=== PATIENT | male | born 1960 | race Caucasian/White ===

== ENCOUNTER → 2021-03-20 08:42 | Outpatient (CLI) | payer OTHER, SELFPAY ==
--- NOTE | ~2021-03-20 | XR_ITS ---
EXAMINATION: XR ribs BI 3V w CXR 2V INDICATION: Chest pain, unspecified TECHNIQUE: PA and lateral views of the chest and 3 views of the bilateral ribs were obtained. COMPARISON: 04/12/2017 FINDINGS: There are minimal airspace opacities of the lung bases. No pleural effusion or pneumothorax is identified. The cardiomediastinal silhouette is normal. An old healed fracture of the right clavi hans is noted. There appear to be healed fractures of the anterior seventh and eighth ribs on the righ t. IMPRESSION: 1. Likely healed right-sided rib fractures. Reviewed, dictated and finalized at location A.
--- NOTE | ~2021-03-20 | XR_ITS ---
EXAMINATION: XR thoracic spine 3V DATE: 03/20/2021 10:52 INDICATION: Dorsalgia, unspecified TECHNIQUE: AP, lateral and lateral swimmer's views of the thoracic spine were obtained. COMPARISON: None. FINDINGS: There is no fracture. The vertebral body heights and alignment are normal. Mild loss of int ervertebral disc space height is seen in the mid thoracic spine. IMPRESSION: 1. Mild thoracic spondylosis without acute findings. Reviewed, dictated and finalized at location A.
--- NOTE | ~2021-03-20 | XR_ITS ---
XR_CERV2-3V_CR 03/20/2021 10:52 Indication: Neck pain Procedure: 4 views of cervical spine Comparison: 04/29/2012 Findings: No fracture, subluxation or dislocation. Vertebral body heights are maintained. No acute fr acture or traumatic malalignment. The cervicothoracic junction is visualized on the thoracic spine se amy. No prevertebral soft tissue abnormality. Lung apices are normal. No prevertebral soft tissue ab normality. Odontoid process within normal limits. Impression: 1: No significant abnormality of the cervical spine. Reviewed, dictated and finalized at location B. Impression: 1: No significant abnormality of the cervical spine.
--- NOTE | ~2021-03-20 | XR_ITS ---
EXAMINATION: XR lumbar spine 2-3V DATE: 03/20/2021 10:52 INDICATION: Low back pain TECHNIQUE: Anteroposterior and lateral views of the lumbar spine, and cone-down lateral view of the l umbosacral junction were obtained. COMPARISON: 04/12/2017 FINDINGS: There is mild anterior wedging of the lower thoracic spine and at L1 which appears chronic. The vertebral body alignment is normal. There is mild loss of intervertebral disc space height at L1 -2, L4-5, and L5-S1. Moderate facet osteoarthritis is noted. Small degenerative osteophytes project f rom the anterior endplates of multiple vertebral bodies. IMPRESSION: 1. Mild anterior wedging of the lower thoracic and upper lumbar spine which appears chronic and is li panchito physiologic. 2. Mild spondylosis. Reviewed, dictated and finalized at location A. IMPRESSION: 1. Mild anterior wedging of the lower thoracic and upper lumbar spine which linwood ears chronic and is likely physiologic. 2. Mild spondylosis.
== END ==
PROVIDERS: Visit Provider Nurse Practitioner Family
DX: M54.9 Dorsalgia, unspecified (principal); R07.9 Chest pain, unspecified; M47.894 Other spondylosis, thoracic region; M47.896 Other spondylosis, lumbar region
CPT/HCPCS: 71046; 71110; 72040; 72072; 72100

== ENCOUNTER 2024-11-06 00:36 | Day surgery (SDC) | payer MEDICARE, SELFPAY ==
[2024-11-01 14:48] VITALS: BMI 34.4
--- NOTE | 2024-11-01 15:03 | PC.NURSE ---
Addendum entered by Chloe Molina RN 11/03/24 10:43: 11/02/[address] Tinoco's office and they advise it is okay for pt to hold Plavix-just waiting on Dr. Tinoco to sign form. I spoke with Nemo pts and he will cont. to hold Plavix. 11/03/24 Received clearance letter from Dr. Tinoco's office that it is acceptable for pt to hold Plavix for colonoscopy and restart at after procedure. Spoke with Nemo confirming this. Original Note: Per pt's , Plavix is prescribed by software test technician Dr. Tinoco. Clearance form faxed on 11/01/[address] Tinoco with confirmation and call to office to voice urgency for form to be completed. Clearance form received from Dr. Ray. Dr. Ray requests clearance from Dr. Tinoco in regards to pt's Plavix. Per Dr. Tinoco's office, RN is out of the office and will be back tomorrow morning. It is requested we call first thing tomorrow morning to check status of clearance form. I spoke with pt and his and advised pt to take Plavix today, but hold taking tomorrow until we get clearance from Dr. Tinoco and update him. Pt and voiced understanding.
--- OUTSIDE RECORDS SUMMARY | 2024-11-06 00:41 | XMS_ITS | Patient Health Record ---
Author Organization [facility] Address [address] [place] [address] Reason For Referral No Information Plan Of Treatment No Information
--- OUTSIDE RECORDS SUMMARY | 2024-11-06 00:41 | XMS_ITS | Encounter Summary ---
Author Organization [facility] Address [address] [facility] [address] [place] [id number] Care Team Providers Care Artificial Intelligence Specialist Name Role Phone Marcos Pisano MD Primary Care Provider + [phone] Marcos Pisano MD Primary Care Provider + [phone] Encounter Details Date Type Department Care Team (Late st Contact Info) Description 11/17/2016 Orders Only [facility] ProviderMaximo MD [address] [place] [id number] Social History Tobacco Use Types Packs/Day Years Used Date Smoking Tobacco: Former Cigarettes Q uit: 09/27/2014 Comments:Smoking History Pac ks/day: 1 Packs Alcohol Use Standard Drinks/Week Comments Yes 0 (1 standard drink = 0.6 oz pur e alcohol) Sex and Gender Information Value Date Recorded Sex Assigned at Not on file Legal 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 Historical Provider [facility] Final Result documented in this encounter Visit Diagnoses Not on filedocumented in this encounter Care Teams Artificial Intelligence Specialist Relationship Specialty Start Date End Date Marcos Pisano MD PCP - General 12/25/16 Marcos Pisano MD PCP - General 01/18/15 12/24/16 documented as of this encounter
--- OUTSIDE RECORDS SUMMARY | 2024-11-06 00:42 | XMS_ITS | Data Portability ---
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 Plan of Treatment Reminders Order Date Submit Date Provider Last Modified By Organization Details Last Modified Time Details Appointments None recorded. Lab ETHEL (antinuclea r antibodies) titer + pattern, ifa, serum 2022 023 [facility] (Lab), [address] [place], [address], 3 09:05:31 ige, total, serum [address] (Lab), [address] [place], [address], 3 15:37:48 alpha-1-ant itrypsin (aat) phenotype, serum [address] (Lab), [address] [place], [address], 3 15:37:49 igg subclasses 1+2+3+4, serum [address] (Lab), [address] [place], [address], 3 15:37:49 eosinophil count, manual, blood (OBS) 2022 023 [facility] (Lab), [address] [place], [address], 3 17:54:16 tb (M tuberculosi s), ifn-gamma rogelio, blood [address] (Lab), [address] [place], [address], 3 15:37:49 alpha-1-ant itrypsin (aat), QN, serum [address] (Lab), [address] [place], [address], 3 15:37:49 rast class, qualitative , serum 2022 023 [facility] (Lab), [address] [place], [address], 3 14:36:53 Referral otolaryngol ogist referral - [facility] evaluation 2022 023 [email or web address] 25 Grant Liu MD Ent, [facility] [address], [address], 11:39:26 Procedures None recorded. Surgeries None recorded. Imaging CT, chest, w/o contrast - DUE around 08/04/23 no auth required 2022 023 [email or web address] 25 [facility] ([facility]), [address] [place], [address], 12:41:04 Medication Orders None recorded. Patient TargetsNo targets recorded. Patient Instructions Encounter Date Encounter Id Patient Instructions Last Modified By Organization Details Last Modified Time 04/06/2023 [id number] six minute walk test* Not available 09/01/2023 11:39:14 06/28/2023 [id number] six minute walk test* - Patient scheduled on 08/10/2023 arrive at 1230pm [email or web address] Not available 09/01/2023 11:39:15 Reason for Referral [employer] Referral fo r Obstructive sleep apnea syndrome [facility] evaluation Referring Physician: Radha Sal, Pulmonary Disease, Encounter Date: 06/28/2023 Results Created Date Observation Date Name Description Value Unit Range Abnormal Flag Note LastModifiedBy Organization Detail LastModifiedTime 03/16/2003/13/2023 polys omnog daren, titra tion study No observ ation record ed. [email or web address] Not Available 03/26 09:58:47 03/18/20 23 10/28/2022 home sleep study No observ ation record ed. BARCODE Not Available 2022 11:01:27 03/18/20 23 11/05/2022 imagi ng/di agnos tic resul t No observ ation record ed. BARCODE Not Available 2022 12:40:11 03/18/20 23 02/01/2023 LDCT, chest , for lung cance r scree tomer No observ ation record ed. BARCODE Not Available 2022 12:40:11 03/18/20 23 10/28/2022 home sleep study No observ ation record ed. BARCODE Not Available 2022 12:40:11 03/18/20 23 10/28/2022 compl ete PFT w/ post cox monett hodil ator adilene metry * No observ ation record ed. BARCODE Not Available 2022 12:40:11 03/22/20 23 01/25/2023 imagi ng/di agnos tic resul t No observ ation record ed. BARCODE Not Available 2022 19:06:12 Result Notes None recorded. Problems Name Problem SNOMED Code Status Onset Date Resolution Date Notes Provider Name and Address Organization Details Recorded Time Tobacco user 300991645 Active Not Available [facility] 3 17:42:28 Blood glucose outside reference range 529725480 Active Not Available [facility] 3 17:42:28 Shoulder joint pain 210227706 Active Not Available [facility] 3 17:42:28 Cyst of skin 408168167 Active Not Available [facility] 3 17:42:28 Hypertensive disorder 74341607 Active Not Available [facility] 3 17:42:28 Umbilical hernia 824082293 Active Not Available [facility] 3 17:42:28 Sebaceoma 482024663 Active Not Available [facility] 3 17:42:28 Cough 67472329 Active Not Available [facility] 3 17:42:28 Coronary arteriosclero sis 61042674 Active Not Available [facility] 3 17:42:28 Skin lesion 09944086 Active Not Available [facility] 3 17:42:28 Obstructive sleep apnea syndrome 10052793 Active 2022 DEVON Jimenez [address], [address], [place], [address] , [employer] [facility] [employer] [facility] 3 10:21:23 Dyspnea on exertion 24238738 Active 2022 DEVON Jimenez [address], [address], [place], [address] , [employer] [facility] [employer] [facility] 3 10:22:58 Mild chronic obstructive pulmonary disease 031582134 Active 2022 DEVON Jimenez [address], [address], [place], [address] , [employer] [facility] [employer] [facility] 3 10:24:47 Localized eruption of skin 279387491 Active 2022 DEVON Jimenez [address], [address], [place], [address] , [employer] [facility] [employer] [facility] 3 10:25:19 Chronic cough 82299713 Active 2022 DEVON Jimenez [address], [address], [place], [address] , [employer] S [employer] [facility] 3 13:15:07 Abnormal findings on diagnostic imaging of lung 535685111 Active 2022 DEVON Jimenez [address], [address], [place], [address] , [facility] [employer] 13:15:27 Acute exacerbation of chronic obstructive pulmonary disease 368812176 Active 2022 Radha Doron, [facility]- [address], [address], [place], [address] , [facility] [employer] 10:01:53 Notes:Trevor Gallagher MD; Moses Kellogg MD [facility] home sleep study 10/28/22 AHI = 27 [facility] titration sleep study 03/13/23 Medical History: Nicotine use Mild COPD 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 Procedures Surgical History Date Name Laterality Status Provider Name and Address Organization Details Recorded Time repair of diaphragmatic hernia by abdominal approach completed [facility] [facility] 04/06/2023 09:56:39 Cardiac Stent Placement completed [facility] 04/06/2023 09:57:17 Imaging Results Imaging Date Name Status LastModified by Organization Details LastModified Time 03/13/2023 polysomnogram, titration study completed [email or web address] Information not available 03/26/2023 09:58:47 10/28/2022 home sleep study completed [facility] Informat ion not available 03/18/2023 11:01:27 11/05/2022 imaging/diagnostic result completed [facility] Information not available 03/18/2023 12:40:11 02/01/2023 LDCT, chest, for lung cancer screening completed [facility] Information not available 03/18/2023 12:40:11 10/28/2022 home sleep study completed [facility] Informat ion not available 03/18/2023 12:40:11 10/28/2022 complete PFT w/ post bronchodilator spirometry* completed [facility] Information not available 03/18/2023 12:40:11 01/25/2023 imaging/diagnostic result completed [facility] Information not available 03/22/2023 19:06:12 Procedure Notes None recorded. Medical Equipment None Reported. Allergies No known drug allergies Medications Name Sig Start Date Stop Date Status Note LastModified by Organization Details LastModified Time amoxicill in 500 mg capsule TAKE TWO CAPSULES BY MOUTH TWICE DAILY FOR 10 DAYS 04/06 completed Not Available Not Available Not Available atorvasta tin 40 mg tablet TAKE ONE TABLET BY MOUTH EVERY MORNING TO LOWER CHOLESTE ROL active Not Available Not Available No t Available doxycycli ne hyclate 100 mg capsule TAKE ONE CAPSULE BY MOUTH TWICE DAILY FOR 7 DAYS active Not Available Not Available No t Available lisinopri l 20 mg-hydroc hlorothia zide 12.5 mg tablet Take 1 tablet every day by oral route. active Not Available Not Available No t Available azithromy mariela 250 mg tablet TAKE 2 TABLETS BY MOUTH ON DAY 1, THEN TAKE 1 TABLET DAILY ON DAYS 2-5 active Not Available Not Available No t Available ibuprofen 800 mg tablet 06/26 completed Not Available Not Available Not Available benzonata te 200 mg capsule TAKE ONE CAPSULE BY MOUTH THREE TIMES DAILY FOR 10 DAYS 04/06 completed Not Available Not Available Not Available hydrocodo ne 5 mg-acetam inophen 325 mg tablet 11/16 completed Not Available Not Available Not Available prednison e 20 mg tablet TAKE THREE TABLETS DAILY DIRECTED FOR 5 DAYS active Not Available Not Available No t Available cyanocoba jeremías (vit B-12) 1,000 mcg tablet Take 1 tablet every day by oral route as directed for 30 days. active Not Available Not Available No t Available amlodipin e 5 mg tablet TAKE ONE TABLET BY MOUTH EVERY MORNING FOR BLOOD PRESSURE active Not Available Not Available No t Available ciproflox acin 500 mg tablet TAKE ONE TABLET BY MOUTH EVERY TWELVE HOURS FOR 10 DAYS 04/06 completed Not Available Not Available Not Available tramadol 50 mg tablet active Not Available Not Available Not Available oxycodone -acetamin ophen 5 mg-325 mg tablet TK 1 T PO Q 4 H PRN P 08/02 completed Not Available Not Available Not Available isosorbid e mononitra te ER 60 mg tablet,ex tended release 24 hr TAKE ONE TABLET BY MOUTH EVERY MORNING FOR HEART active Not Available Not Available No t Available pantopraz ole 40 mg tablet,de layed release TAKE ONE TABLET BY MOUTH BEFORE A MEAL FOR STOMACH active Not Available Not Available No t Available metoprolo l tartrate 50 mg tablet 04/06 completed Not Available Not Available Not Available aspirin 81 mg chewable tablet CHEW TWO TABLETS BY MOUTH EVERY MORNING TO PREVENT BLOOD CLOTS active Not Available Not Available No t Available diclofena c sodium 75 mg tablet,de layed release 06/26 completed Not Available Not Available Not Available ergocalci ferol (vitamin D2) 1,250 mcg (50,000 unit) capsule TAKE 1 CAPSULE BY MOUTH 1 TIME A WEEK active Not Available Not Available No t Available albuterol sulfate HFA 90 mcg/actua tion aerosol inhaler Inhale 2 puffs by mouth every 4 hours as needed for shortnes s of breath or wheezing active Not Available Not Available No t Available fluticaso ne propionat e 50 mcg/actua tion nasal spray,phil pension SPRAY ONE PUFF IN EACH NOSTRIL TWICE DAILY FOR ALLERGIE S active Not Available Not Available No t Available doxycycli ne hyclate 100 mg tablet Take 1 tablet twice a day by oral route as directed for 7 days. 2022 active Not Available Not Available Not Avai lable loratadin e 10 mg tablet TAKE ONE TABLET BY MOUTH EVERY MORNING FOR ALLERGIE S active Not Available Not Available No t Available amoxicill in 875 mg-potass ium clavulana te 125 mg tablet TAKE ONE TABLET EVERY TWELVE HOURS FOR 7 DAYS active Not Available Not Available No t Available valsartan 160 mg tablet TAKE ONE TABLET BY MOUTH EVERY MORNING FOR BLOOD PRESSURE active Not Available Not Available No t Available valsartan 160 mg-hydroc hlorothia zide 25 mg tablet TK 1 T PO QD active Not Available Not Available No t Available metoprolo l tartrate 25 mg tablet TAKE 1/2 TABLET BY MOUTH EVERY MORNING FOR BLOOD PRESSURE active Not Available Not Available No t Available metoprolo l tartrate active one PO daily Not Available Not Available Not Available isosorbid e active Isosorbi de monoitra te ER 30mg one PO daily Not Available Not Available Not Available varenicli ne tartrate 0.5 mg tablet active Not Available Not Available Not Available FeroSul 325 mg (65 mg iron) tablet TAKE 1 TABLET BY MOUTH EVERY DAY active Not Available Not Available No t Available Brilinta 90 mg tablet TAKE 1 TABLET BY MOUTH TWICE DAILY active Not Available Not Available No t Available Jardiance 10 mg tablet TAKE 1 TABLET BY MOUTH EVERY DAY active Not Available Not Available No t Available Xarelto 2.5 mg tablet TAKE 1 TABLET BY MOUTH TWICE DAILY 07/01 completed Not Available Not Available Not Available BinaxNOW COVID-19 Ag Self Test kit TEST DIRECTED TODAY active Not Available Not Available No t Available Ozempic 0.25 mg or 0.5 mg (2 mg/3 mL) subcutane ous pen injector Inject 0.5 mg by subcutan eous route. active weekly Not Available Not Available No t Available Vitals Date Recorded Body height Body mass index (BMI) Body weight Heart rate Oxygen saturation Oxygen saturation in Arterial blood by Pulse oximetry Systolic blood pressure Diastolic blood pressure Provider Name and Address Organization Details Last Updated DateTime 3 182.88 cm 34.9 kg/m2 699901. 24 g 79 /min 95 % 95 % 120 mm[Hg] 58 mm[Hg] [employer] [facility] 3 09:42:26 Date Recorded Body height Body mass index (BMI) Body weight Heart rate Oxygen saturation Oxygen saturation in Arterial blood by Pulse oximetry Systolic blood pressure Diastolic blood pressure Provider Name and Address Organization Details Last Updated DateTime 3 182.88 cm 30.5 kg/m2 605018. 28 g 80 /min 96 % 96 % 92 mm[Hg] 52 mm[Hg] [employer] [facility] 3 14:34:58 Social History Question Answer Notes LastModified by Organizat ion Details LastModified Time Tobacco Smoking Status Current Every Day Smoker KAMLESH Barrera, [employer] [facility] 06/28/2023 14:20:35 What Is Your Level Of Alcohol Consumption? Moderate [email or web address] Information not available 04/06/2023 What Is Your Level Of Caffeine Consumption? 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 [email or web address] Information not available 06/28/2023 Do You Have Any Pets? No [email or web address] Information not available 06/28/2023 At What Age Did You Start Smoking Tobacco? 14 [email or web address] Information not available 06/28/2023 How Much Tobacco Do You Smoke? 0.5 PPD [email or web address] Information not available 04/06/2023 Do You Use Any Illicit Or Recreational Drugs? No [email or web address] Information not available 06/28/2023 How Many Years Have You Smoked Tobacco? 44 [email or web address] Information not available 06/28/2023 Do You Or Have You Ever Used Any Other Forms Of Tobacco Or Nicotine? No [email or web address] Information not available 06/28/2023 Sex: Unknown Functional Status None recorded. Mental Status None recorded. Family History Nothing Reported. Medical History No medical history recorded. 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 DUMP OPERATOR-BC [facility] [address] [place] [address] 04/06/2023 09:23:25 04/06/2023 10:40:57 Obstructive sleep apnea syndrome 49960618 G47.33 Home sleep study 10/2022 with AHI 27.3Titrat ion 02/2023 with best pressure 8cm H2OHe tells me that he did not tolerate this pressure wellDiscus sed study and titration in detailHe agrees to try PAP - ordered todayEncou raged 100% compliance with all sleepDiscu ssed the risks of uncorrecte d ROLY, including deathFollo w with PCM for labsAdvise d good sleep habits and patterns:- Set a goal for at least 7 to 8 hours of sleep time per day.-Use the bed mainly for sleep and to go to bed only when tired. If unable to fall asleep after 30 minutes, patient should get out of bed but should not engage in any activity that requires sustained mental alertness. -Maintain a regular bedtime and wake-up time even on weekends-A void excessive naps during the daytime. If a nap is necessary, limit it to no more than 30 minutes.-M inimize environmen leo noise, bright lights, and extremes in bedroom temperatur e.-Avoid alcohol, caffeinate d beverages, and nicotine products for at least 6 hours prior to bedtime.-A void strenuous exercise and large meals for at least 4 hours prior to bedtime.RT C for compliance visit Dyspnea on exertion 6084 5006 R06.09 Likely multifacto ralCheck labs Mild chron ic obstructive pulmonary disease 416975593 J44.9 PFT completed 10/2022 with ratio 87FEV1 73TLC 93DLCO 86Discusse d in detailStar t Stiolto.8 weeks of samples to patientIns tructed on techniqueC heck 6MWTDiscus sed reportable signs and symptomsRT C in about 8 weeks Nicotine dependence 5629 4008 Z87.891 Smoking cessation counseling and techniques reviewed at length. L iterature reviewed.A void triggers, support groups.Dis traction techniques Greater than 3 but less than 10 minutes spent discussing cessation. Declines NRT.Discus sed Rx options if needed in the future.LDC T 01/2023 - repeat due 01/2024 Localized eruption of skin 109041629 R21 Check ETHEL History of SARS-CoV-2 29 63395199 56224023 Z86.16 +August 2022 Chronic cough 47079251 R 05.3 Multifacto ralHe must quit smoking Abnormal f indings on diagnostic imaging of lung 912063338 R91.8 GGO to left - likely post COVID residual [id number] Radha Sal, ROTARY DUMP OPERATOR- [facility] [address] [place] [address] 06/28/2023 14:19:36 06/28/2023 17:22:21 Obstructive sleep apnea syndrome 01673718 G47.33 Home sleep study 10/2022 with AHI 27.3Titrat ion 02/2023 with best pressure 8cm H2ONot enough use to discern clinical benefitEnc ouraged 100% compliance with all sleepDiscu ssed the risks of uncorrecte d ROLY, including deathFollo w with PCM for labsAdvise d good sleep habits and patterns:- Set a goal for at least 7 to 8 hours of sleep time per day.-Use the bed mainly for sleep and to go to bed only when tired. If unable to fall asleep after 30 minutes, patient should get out of bed but should not engage in any activity that requires sustained mental alertness. -Maintain a regular bedtime and wake-up time even on weekends-A void excessive naps during the daytime. If a nap is necessary, limit it to no more than 30 minutes.-M inimize environmen leo noise, bright lights, and extremes in bedroom temperatur e.-Avoid alcohol, caffeinate d beverages, and nicotine products for at least 6 hours prior to bedtime.-A void strenuous exercise and large meals for at least 4 hours prior to bedtime.Di scussed oral appliance and Inspire.Re ferral for both today. Dyspnea on exertion 6084 5006 R06.09 Likely multifacto ralAll labs normalSMok ing cessation Mild chron ic obstructive pulmonary disease 326615680 J44.9 PFT completed 10/2022 with ratio 87FEV1 73TLC 93DLCO 86Discusse d in detailStar bridger Crews, I have asked him to try this compliantl y for at least a weekInstru cted on techniqueC heck 6MWT, reordered todayDiscu ssed reportable signs and symptoms Localized eruption of skin 456117207 R21 ETHEL negative Chronic cough 48193697 R 05.3 Multifacto ralHe must quit smoking Nicotine dependence 5629 4008 Z87.891 Smoking cessation counseling and techniques reviewed at length. L iterature reviewed.A void triggers, support groups.Dis traction techniques Greater than 3 but less than 10 minutes spent discussing cessation. Declines NRT.Discus sed Rx options if needed in the future. Abnormal f indings on diagnostic imaging of lung 594787394 R91.8 GGO to left - likely post COVID residualRe check CT to assess for resolution vs stability History of SARS-CoV-2 29 02772060 28447826 Z86.16 +August 2022 Health Concerns Section Related Observation LastModified by Organization Detai ls LastModified Time None Recorded Concern Status LastModified by Organization Details LastModified Time None Recorded Advance Directives Directive None Recorded Payers Encounter Date Sequence Insurance Name Policy Number Policy [place] Covered Member ID [place] Member ID Guarantor Name 04/06/2023 1 [facility] (MEDICAID HMO) [id number] Inderjit oNonan [id number] Inderjit Noonan 06/28/2023 3 [facility] (MEDICARE REPLACEMENT/A DVANTAGE - HMO) [employer] Inderjit Noonan [id number] Inderjit Noonan Notes Date Note Type Note Provider Name and Address Organization Details Recorded Time 04/06/2023 text/html Mr Noonan pre sents today to establish care for further evaluation of ROLY, dyspnea, cough, abnormal imaging, nicotine dependenceHe has had cardiology evaluation with extensive workupSleep study was positive, he has not gotten PAP machine yetHe admits to falling asleep unintentionally during the dayEnergy levels are fair.Endorses snoring and xerostomiaHas also had PFT and CT chestAdmits to altering routines to avoid shortness of breathCan dress and bathe without dyspneaDoes have difficulty with mowing the grass and steps.Cough is most days, mildly productiveDenies wheezingWakes infrequently due to respiratory symptomsNo respiratory infection this year, did have COVID orn and raised in [place]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Feels like the pressure is too high, although he reports it was better when the pressure was lowered.Tells me that he is having difficulty adjusting to the mask.Energy levels are fair.Endorses snoring and xerostomia, unchangedAdmits to altering routines to avoid shortness of breathCan dress and bathe without dyspneaCough remains most days, mildly productiveDenies wheezingHas not had six minute walk testing DEVON Jimenez [address], [address], [place], [address], [employer] 06/28/2023 22:27:17
--- OUTSIDE RECORDS SUMMARY | 2024-11-06 00:42 | XMS_ITS | CONTINUITY OF CARE DOCUMENT ---
Author Name mitch meyer Address Unknown Organization [facility] Address [address] [place] [address] Phone [phone] Care Team Providers Care Borough Coordinator Name Role Phone Earnest SAHNI, Junie Broderick Unavailable JUANITA BAZZI MD Unavailable JUANITA BAZZI MD Unavailable PROBLEMS Condition Status Date Provider Notes Hiatal hernia active Tam Kellogg MD Aortic root dilatation active Tam Kellogg MD Diastolic CHF AND LVH active Tam Kellogg MD PREDIABETES; active Tam Kellogg MD IRON DEFICIENCY active Tam Kellogg MD B12 deficiency active Tam Kellogg MD Vitamin D deficiency active Tam Kellogg M D Screening active Tam Kellogg MD Hypertension active Tam Kellogg MD Hyperlipidemia;highcrp and neg lpa active H chu Kellogg MD Coronary artery disease active Tam puentes MD Tobacco abuse active Tam Kellogg MD GERD active Tam Kellogg MD Exposure to COVID-19 coronav irus;had vaccine,NG ANTIBOIDY 23 active Tam Kellogg MD COPD active Tam Kellogg MD Sleep apnea active Tam Kellogg MD Obesity active Tam Kellogg MD FAMILY HISTORY OF HEART DISEASE active Irina Kellogg MD [facility] ENCOUNTERS Date Type Provider Location Encounter Diag nosis - In-person encounter Office Visit Junie Tinoco MD [facility] Office - In-person encounter Office Visit Junie Tinoco MD [facility] - In-person encounter Office Visit Junie Tinoco MD [facility] - In-person encounter Office Visit Junie Tinoco MD [facility] - In-person encounter Office Visit Junie Tinoco MD [facility] - In-person encounter Office Visit Tam Kellogg MD [facility] - In-person encounter Office Visit Tam Kellogg MD [facility] ObesityFAMILY HISTORY OF HEART DISEASE - In-person encounter Office Visit Tam Kellogg MD [facility] HypertensionHyperlipidem ia;highcrp and neg lpaCoronary artery diseaseTobacco abuseGERDExposure to COVID-19 coronavirus;had vaccine,NG ANTIBOIDY 23COPDSleep apnea VITAL SIGNS Date Observation Value Provider Body Mass Index (Ratio) 34.85 kg/m2 Halina Tinoco MD blood pressure, diastolic 86 mm[Hg] Li nkLogic blood pressure, systolic 124 mm[Hg] Etelvina kLogic blood pressure, diastolic 86 mm[Hg] Li nkLogic blood pressure, systolic 124 mm[Hg] Etelvina kLogic blood pressure, cuff size regular Ka yla Ruple blood pressure, diastolic 86 mm[Hg] Ka yla Ruple blood pressure, systolic 124 mm[Hg] Ilene la Rugamaliel pulse rate 76 /min Sophie Ruple oxygen saturation, oximetry 96 % [facility] [lb_av] [facility]&M 72 [in_i] Sophie [facility] blood pressure, diastolic 76 mm[Hg] Li nkLogic blood pressure, systolic 125 mm[Hg] [facility] Index (Ratio) 35.26 kg/m2 Halina Tinoco MD weight E&M 260 [lb_av] [facility] blood pressure, cuff size regular [facility] blood pressure, diastolic 76 mm[Hg] [facility] blood pressure, systolic 125 mm[Hg] [facility] oxygen saturation, oximetry 96 % [facility] pulse rate 90 /min [facility] respiratory rate E&M 14 /min [facility] height E&M 72 [in_i] [facility] Body Mass Index (Ratio) 35.12 kg/m2 Halina Tinoco MD blood pressure, diastolic 74 mm[Hg] nkLog blood pressure, systolic 125 mm[Hg] [facility] blood pressure, cuff [facility], [facility] 74 mm[Hg] Dorian rret blood pressure, systolic 125 mm[Hg] Jar ret pulse rate 70 /min Kalin respiratory rate E&M 12 /min Kalin oxygen saturation, oximetry 97 % Kalin weight E&M 259 [lb_av] Kalin er y height E&M 72 [in_i] Kalin er y Body Mass Index (Ratio) 34.99 kg/m2 Halina Tinoco MD blood pressure, diastolic 78 mm[Hg] Miladis nkLogic blood pressure, systolic 121 mm[Hg] Etelvina kLogic blood pressure, diastolic 78 mm[Hg] [facility] blood pressure, systolic 121 mm[Hg] [facility] oxygen saturation, oximetry 96 % Sarika Clarence pulse rate 58 /min Sarika Clarence respiratory rate E&M 18 /min Sarika D jhonathan weight E&M 258 [lb_av] Sarika Clarence height E&M 72 [in_i] Sarika Clarence Body Mass Index (Ratio) 35.39 kg/m2 Halina Tinoco MD blood pressure, diastolic 83 mm[Hg] [facility] blood pressure, systolic 133 mm[Hg] [facility] oxygen saturation, oximetry 96 % Sarika Clarence pulse rate 74 /min Sarika Clarence weight E&M 261 [lb_av] Sarika Clarence height E&M 72 [in_i] Sarika Clarence respiratory rate E&M 18 /min Sarika D jhonathan Body Mass Index (Ratio) 35.39 kg/m2 Irina Kellogg MD blood pressure, diastolic 73 mm[Hg] [facility] blood pressure, systolic 115 mm[Hg] [facility] oxygen saturation, oximetry 95 % Sarika Clarence pulse rate 87 /min Sarika Clarence respiratory rate E&M 18 /min Sarika D jhonathan weight E&M 261 [lb_av] Sarika Clarence height E&M 72 [in_i] Sarika Clarence Body Mass Index (Ratio) 35.53 kg/m2 Irina Kellogg MD weight E&M 262 [lb_av] Tam Cardona Body Mass Index (Ratio) 35.39 kg/m2 Irina Kellogg MD blood pressure, diastolic 78 mm[Hg] [facility] b[facility] blood pressure, systolic 119 mm[Hg] Liam L[facility] oxygen saturation, oximetry 95 % Sarika Lima respiratory rate E&M 16 /min Sarika Cardona jhonathan pulse rate 74 /min Sarika Lima height E&M 72 [in_i] Sarika Lima weight E&M 261 [lb_av] Sarika Lima ALLERGIES No Known Drug Allergies RESULTS Date Observation Value Provider Reference Range Interpretation Location 7 c-reactive protein, quantitative, serum 13.13 mg/L [facility] 0.00-3.00 High 7 microalbumin/creatin ine ratio, urine 3 MG/G CREAT [facility] 0-29 7 microalbumin, random, urine 0.4 mg/dL [facility] Units converted. See lab report for original value. 7 creatinine, random, urine 133.8 mg/dL [facility] Not Estab. 7 ferritin, serum 48 ng/mL [facility] 30-400 7 B-12, serum 357 pg/mL [facility] 232-1245 7 pro brain natriuretic peptide 264 pg/mL [facility] 0-210 High 7 iron saturation percent, serum 37 % [facility] 15-55 7 iron, serum 109 ug/dL [facility] 38-169 7 iron binding capacity, unsaturated 186 ug/dL [facility] 029-618 1243/01/1 7 iron binding capacity, total 295 ug/dL [facility] 996-106 2740/01/1 7 free thyroxine index 2.0 [facility] 1.2-4.9 7 triiodothyronine resin uptake 32 % [facility] 24-39 7 thyroxine, serum, total 6.4 ug/dL [facility] 4.5-12.0 7 thyroid stimulating hormone, serum 2.580 u[IU]/mL [facility] 0.450-4.500 7 hemoglobin A1C, blood, as % of total hemoglobin 6.1 % [facility] 4.8-5.6 High 7 lipoprotein, beta, serum, point, quantitative, calculated 65 mg/dL [facility] 0-99 7 HDL cholesterol, serum 52 mg/dL [facility] >39 7 triglyceride, serum, random 98 mg/dL [facility] 0-149 7 cholesterol, serum 135 mg/dL [facility] 550-951 7181/01/1 7 basophil count, absolute 0.0 x10E3/uL [facility] 0.0-0.2 7 Eosinophil Absolute Count 0.3 X10E3/UL [facility] 0.0-0.4 7 monocyte count, blood, automated 1.5 X10E3/UL [facility] 0.1-0.9 High 7 lymphocyte count, blood, automated 2.4 X10E3/UL [facility] 0.7-3.1 7 Absolute Neutrophils 7.9 X10E3/UL [facility] 1.4-7.0 High 7 basophils as percent of blood leukocytes 0 % [facility] Not Estab. 7 eosinophils as percent of blood leukocytes 2 % [facility] Not Estab. 7 monocytes as percent of blood leukocytes 12 % [facility] Not Estab. 7 lymphocytes as percent of blood leukocytes 20 % [facility] Not Estab. 7 neutrophils as percent of blood leukocytes 66 % [facility] Not Estab. 7 platelet count 263 X10E3/UL [facility] 850-211 2053/01/1 7 red blood cell distribution width 13.0 % [facility] 11.6-15.4 7 mean corpuscular hemoglobin concentration, RBC 32.6 G/DL [facility] 31.5-35.7 7 mean corpuscular hemoglobin, RBC 30.0 pg [facility] 26.6-33.0 7 mean corpuscular volume, RBC 92 fL [facility] 79-97 7 hematocrit, blood 43.5 % [facility] 37.5-51.0 7 hemoglobin, blood 14.2 g/dL [facility] 13.0-17.7 7 erythrocyte (RBC) count 4.74 X10E6/UL [facility] 4.14-5.80 7 leukocyte count, blood 12.1 X10E3/UL [facility] 3.4-10.8 High 7 alanine aminotransferase (SGPT), serum 15 1/L [facility] 0-44 7 aspartate aminotransferase (SGOT), serum 15 1/L [facility] 0-40 7 alkaline phosphatase, serum 123 1/L [facility] 44-121 High 7 bilirubin, serum, total 0.7 mg/dL [facility] 0.0-1.2 7 albumin/globulin ratio, serum 1.7 [facility] 1.2-2.2 7 globulin, serum 2.4 [facility] 1.5-4.5 7 albumin, serum 4.1 g/dL [facility] 3.8-4.8 7 protein, total, serum 6.5 g/dL [facility] 6.0-8.5 7 calcium, serum 9.0 mg/dL [facility] 8.6-10.2 7 carbon dioxide, venous blood 23 mmol/L [facility] 20-29 7 chloride, serum 106 mmol/L [facility] 96-106 7 potassium, serum 4.7 mmol/L [facility] 3.5-5.2 7 sodium, serum 142 mmol/L [facility] 430-454 5818/01/1 7 urea nitrogen/creatinine ratio, serum 15 [facility] 10-24 7 creatinine, serum 0.88 mg/dL [facility] 0.76-1.27 7 urea nitrogen, blood 13 mg/dL [facility] 8-27 7 blood glucose, random 98 mg/dL [facility] 70-99 HISTORY OF MEDICATION USE Medication Status Instructions Dates Provider Indications Com ments Jardiance 10 mg tablet active Take 1 tablet by mouth once a day Laura Kelly Plavix 75 mg tablet active Take 1 tablet by mouth once a day Stop Brilinta, start Plavix Junie Tinoco MD Jardiance 10 mg tablet completed TAKE 1 TABLET BY MOUTH EVERY DAY - Laura Kelly Brilinta 90 mg tablet completed 1 tablet by mouth twice a day - Junie Tinoco MD Brilinta 90 mg tablet completed - Maximino Jones RN Ozempic 0.25 mg or 0.5 mg (2 mg/3 mL) pen injector active INJECT 0.25 MG UNDER THE SKIN ONCE A WEEK FOR 4 WEEKS, THEN INCREASE TO 0.5 MG WEEKLY. Angela Ventimiglia SAMPLER FIRST FeroSul 325 mg (65 mg iron) tablet active TAKE 1 TABLET BY MOUTH EVERY DAY Kalin darnell ergocalciferol (vitamin D2) 1,250 mcg (50,000 unit) capsule active TAKE 1 CAPSULE BY MOUTH 1 TIME A WEEK Leeann Whatley cyanocobalamin (vitamin B-12) 1,000 mcg capsule active Take 1 capsule by mouth once a day Tam Kellogg MD Jardiance 10 mg tablet completed Take 1 tablet by mouth once a day - Massiel Prado Xarelto 2.5 mg tablet active Take 1 tablet by mouth twice a day Mary Terry NP metoprolol tartrate 25 mg tablet active Take 1/2 tablet by mouth once a day Mary Terry NP pantoprazole 40 mg tablet,delayed release (DR/EC) active TAKE 1 TABLET BY MOUTH EVERY DAY Mary Terry NP aspirin 81 mg tablet,chewable active Take 1 tablet by mouth once a day Mary Terry NP isosorbide mononitrate 60 mg tablet extended release 24 hr active TAKE 1 TABLET BY MOUTH EVERY DAY Mray Terry NP valsartan 160 mg tablet active TAKE 1 TABLET BY MOUTH ONCE A DAY Mary Terry NP amlodipine 5 mg tablet active Take 1 tablet by mouth once a day Mary Terry NP atorvastatin 40 mg tablet active TAKE 1 TABLET BY MOUTH EVERYDAY AT BEDTIME Mary Terry NP Nitrostat 0.4 mg tablet, sublingual active 1 tablet under tongue as directed as needed 1 tablet under tongue for chest pain. May repeat every 5 minutes if still having chest pain- to max of 3 tablets per episode.If no relief after 3rd dose, go to ER Mary Terry NP SOCIAL HISTORY Date Observation Value Provider drug use no [facility] alcohol use, average drinks per day 2 /d [facility] alcohol use, type beer [facility] er alcohol use yes [facility] chewing tobacco use Never [facility] number of years as a smoker 45+ [facility] smoking history, tot al pack/day 1 [facility] cigarette use yes [facility] smoking status Former smoker [facility] social history reviewed E&M revi ewed - no changes required Kahlil Herrera NP social history E&M S moking History: Kori sims is a former smoker. Kahlil Herrera NP drug use no Kahlil Herrera NP alcohol use yes Kahlil Herrera NP cigarette use yes Kahlil Herrera NP smoking status Former smoker Kahlil Morrowanita huffman NP social history E&M S moking History: Kori sims currently smokes every day. Kori sims has been counseled to quit. Junie Tinoco MD social history reviewed E&M revi ewed - no changes required Junie Tinoco MD smoking/tobacco cess ation, patient education and counseling yes Sarikaprasanth Lima chewing tobacco use Never Sarika Da vis number of years as a smoker 45+ Sarika Clarence smoking history, tot al pack/day 1 Sarikaprasanth [facility]ima cigarette use yes Sarikaprasanth [facility] smoking status Current every da y smoker Sarika Lima number of grandchildren Junie iTnoco MD social history E&M S moking History: Kori sims currently smokes every day. P levi has been counseled to quit. Junie Tinoco MD social history reviewed E&M revi ewed - no changes required Junie Tinoco MD smoking/tobacco cess ation, patient education and counseling yes Sarika Lima chewing tobacco use Never Sarika Da akhil number of years as a smoker 45+ Sarika Lima smoking history, tot al pack/day 1 Sarika Lima cigarette use yes Sarikaprasanth Lima smoking status Current every da y smoker Sarika Lima drug use no Angela Ventimig nessa [facility] alcohol use, average drinks per day 2 /d Angela Ventimiglia [facility] alcohol use, type beer Angela Darvin timiglia [facility] alcohol use yes Angela Ventimig nessa [facility] smoking/tobacco cess ation, patient education and counseling yes Sarikaprasanth Lima chewing tobacco use Never Sarika Da vis number of years as a smoker 45+ Sarikaprasanth Lima smoking history, tot al pack/day 1 Sarikaprasanth Lima cigarette use yes Sarikaprasanth Lima smoking status Current every da y smoker Sarikaprasanth Lima smoking/tobacco cess ation, patient education and counseling yes Tam Kellogg MD smoking/tobacco cess ation, patient education and counseling yes Mary Terry NP chewing tobacco use Never Sarika Correa number of years as a smoker 45+ Mary Terry NP smoking history, tot al pack/day 1 Sarika Lima cigarette use yes Sarika Clarence smoking status Current every da y smoker Sarika Lima FUNCTIONAL STATUS Date Observation Value Provider HRA, CV Assess/Plan, Angina (inactive) Management Plan continue current therapy Junie Tinoco MD HRA, CV Assess/Plan, Angina (inactive) Management Plan continue current therapy Kahlil Herrera NP HRA, CV Assess/Plan, Angina (inactive) Management Plan continue current therapy Junie Tinoco MD HRA, CV Assess/Plan, Angina (inactive) Management Plan continue current therapy Junie Tinoco MD HRA, CV Assess/Plan, Angina (inactive) Management Plan continue current therapy Angela Weber [facility] HRA, CV Assess/Plan, Angina (inactive) Management Plan continue current therapy Mary Terry NP INSURANCE PROVIDERS Payer name Policy type / Coverage type [place] [employer] A[employer] MEDICARE ADVANTAGE ([facility] COMPLETE PPO) Other [id number] ADVANCE DIRECTIVES Name Date DISCUSSED - NO DECISION MADE TREATMENT PLAN Date Name Performer [id number],C, C linically appears compensated. H is updated medication list for this problem includes: Brilinta 90 Mg Tablet (Ticagrelor) ..... 1 tablet by mouth twice a day Aspirin 81 Mg Tablet,chewable (Aspirin) ..... Take 1 tablet by mouth once a day Metoprolol Tartrate 25 Mg Tablet (Metoprolol tartrate) ..... Take 1/2 tablet by mouth once a day Valsartan 160 Mg Tablet (Valsartan) ..... Take 1 tablet by mouth once a day Isosorbide Mononitrate 60 Mg Tablet Extended Release 24 Hr (Isosorbide mononitrate) ..... Take 1 tablet by mouth every day Nitrostat 0.4 Mg Tablet, Sublingual (Nitroglycerin) ..... 1 tablet under tongue as directed as needed 1 tablet under tongue for chest pain. may repeat every 5 minutes if still having chest pain- to max of 3 tablets per episode.if no relief after 3rd dose, go to er Amlodipine 5 Mg Tablet (Amlodipine) ..... Take 1 tablet by mouth once a day Kahlil Herrera JIGAR [id number],C, H as history of CAD with stenting in the past. He has had increasing fatigue, SOB and abnormal stress test. We will plan for cardiac cath for further evaluation. Continue medical management at this time. February 10, 2023 D ES x 1 LED 01/25/23 DAPT ASA Birlinta 12 months. May need to swithc to plavix if his SOB does not imporve. April 02, 2023 R EMAINOMeggan HARRISTA SINCE HE IS SMOKING AGAIN WILL REVISIT SITUATION IN 2M June 30, 2023 r emains on DAPT no bleeding August 11, 2023 N o angina. No bleeding issues on DAPT. Kahlil Herrera JIGAR [id number],C, H is updated medication list for this problem includes: Atorvastatin 40 Mg Tablet (Atorvastatin) ..... 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 H is updated medication list for this problem includes: Aspirin 81 Mg Tablet,chewable (Aspirin) ..... Take 1 tablet by mouth once a day Metoprolol Tartrate 25 Mg Tablet (Metoprolol tartrate) ..... Take 1/2 tablet by mouth once a day Valsartan 160 Mg Tablet (Valsartan) ..... Take 1 tablet by mouth once a day Amlodipine 5 Mg Tablet (Amlodipine) ..... Take 1 tablet by mouth once a day BP today: 125/74 P rior BP: 121/78 (04/02/2023) Labs Reviewed: C reat: 0.88 (10/13/2022) C hol: 135 (10/13/2022) HDL: 52 (10/13/2022) Kahlil Herrera [employer] DES[employer] [id number],S,stopped smoki ng Junie Tinoco MD [id number],C, H as history of CAD with stenting in the past. He has had increasing fatigue, SOB and abnormal stress test. We will plan for cardiac cath for further evaluation. Continue medical management at this time. February 10, 2023 D ES x 1 LED 01/25/23 DAPT ASA Birlinta 12 months. May need to swithc to plavix if his SOB does not imporve. April 02, 2023 R EMAINON BRILINTA SINCE HE IS SMOKING AGAIN WILL REVISIT SITUATION IN 2M June 30, 2023 r emains on DAPT no bleeding Junie Tinoco MD [id number],C,o ilene to stop amlodipine 5mg since BP was low 92/52 at pulmonary. H is updated medication list for this problem includes: Aspirin 81 Mg Tablet,chewable (Aspirin) ..... Take 1 tablet by mouth once a day Metoprolol Tartrate 25 Mg Tablet (Metoprolol tartrate) ..... Take 1/2 tablet by mouth once a day Valsartan 160 Mg Tablet (Valsartan) ..... Take 1 tablet by mouth once a day Amlodipine 5 Mg Tablet (Amlodipine) ..... Take 1 tablet by mouth once a day Junie Tinoco MD [id number],C, H as history of CAD with stenting in the past. He has had increasing fatigue, SOB and abnormal stress test. We will plan for cardiac cath for further evaluation. Continue medical management at this time. February 10, 2023 D ES x 1 LED 01/25/23 DAPT ASA Birlinta 12 months. May need to swithc to plavix if his SOB does not imporve. April 02, 2023 R EMAINOMeggan BRILINTA SINCE HE IS SMOKING AGAIN WILL REVISIT SITUATION IN 2M Junie Tinoco MD [id number],S,Needs titrati on study done. Junie Tinoco MD [id number],S,Stopped slade ng. Junie Tinoco MD [id number],C, H as history of CAD with stenting in the past. He has had increasing fatigue, SOB and abnormal stress test. We will plan for cardiac cath for further evaluation. Continue medical management at this time. February 10, 2023 D ES x 1 LED 01/25/23 DAPT ASA Birlinta 12 months. May need to swithc to plavix if his SOB does not imporve. Junie Tinoco MD [id number],C,B P controlled. 115/73 today. Will continue present medication regimen. H is updated medication list for this problem includes: Aspirin 81 Mg Tablet,chewable (Aspirin) ..... Take 1 tablet by mouth once a day Metoprolol Tartrate 25 Mg Tablet (Metoprolol tartrate) ..... Take 1/2 tablet by mouth once a day Valsartan 160 Mg Tablet (Valsartan) ..... Take 1 tablet by mouth once a day Amlodipine 5 Mg Tablet (Amlodipine) ..... Take 1 tablet by mouth once a day Angela Tia [facility] [id number],C,n oted on home sleep study. Will plan for titration eval Angela Michaelkandislilian [facility] [id number],C,l ifestyle modification encouraged. Angela Tia [facility] [id number],C,P atient pre-diabetic and obese. He would benefit from GLP-1 to help with glycemic control and weight management in the setting of pre-diabetes and other co-morbid conditions. Angela Tia [facility] [id number],C,H as history of CAD with stenting in the past. He has had increasing fatigue, SOB and abnormal stress test. We will plan for cardiac cath for further evaluation. Continue medical management at this time. H is updated medication list for this problem includes: Aspirin 81 Mg Tablet,chewable (Aspirin) ..... Take 1 tablet by mouth once a day Metoprolol Tartrate 25 Mg Tablet (Metoprolol tartrate) ..... Take 1/2 tablet by mouth once a day Isosorbide Mononitrate 60 Mg Tablet Extended Release 24 Hr (Isosorbide mononitrate) ..... Take 1 tablet by mouth every day Nitrostat 0.4 Mg Tablet, Sublingual (Nitroglycerin) ..... 1 tablet under tongue as directed as needed 1 tablet under tongue for chest pain. may repeat every 5 minutes if still having chest pain- to max of 3 tablets per episode.if no relief after 3rd dose, go to er Amlodipine 5 Mg Tablet (Amlodipine) ..... Take 1 tablet by mouth once a day Angela Weber [facility] [id number],S, T he patient is between 55-77 years old and has smoked at least 30 pack years. The patient is either a current smoker or has quit within the past 15 years. T he patient is recommended to have low dose CT scan for lung cancer screening. Has been counseled regarding the importance of tobacco cessation and abstinence. Shared decision making during this office visit included discussion of the benefits and harms of screening, possible future recommendations of follow-up diagnostic testing, and total amount of radiation exposure. The patient was recommended to have annual low dose CT scan for lung cancer screening and is willing to undergo diagnosis and treatment. Angela Weber [facility] [id number],S,T he patient is between 55-77 years old and has smoked at least 30 pack years. The patient is either a current smoker or has quit within the past 15 years. T he patient is recommended to have low dose CT scan for lung cancer screening. Has been counseled regarding the importance of tobacco cessation and abstinence. Shared decision making during this office visit included discussion of the benefits and harms of screening, possible future recommendations of follow-up diagnostic testing, and total amount of radiation exposure. The patient was recommended to have annual low dose CT scan for lung cancer screening and is willing to undergo diagnosis and treatment. Tam Kellogg MD [id number],S, m od Tam Kellogg MD [id number],S, 6 .1 Tam Kellogg MD [id number],S,up tod dateo on colon Tamwendy Lacydhaval SAHNI [id number],S, Tam Serot a [id number],S, Tam Serot a [id number],S, N EG UACR, EGFR 96 AND TSH Tamwendy Lacydhaval SAHNI [id number],S, Tam Serot a [id number],S, Tma Serot a [id number],S, 2 60 Tam Serotdhaval SAHNI [id number],S, 4 .2 Tam Serotdhaval SAHNI [id number],S, Tam Serot a [id number],W, p os nuc after remote stent Tam Kellogg MD [id number],C,mod Tam geovany SAHNI [id number],C,pos nuc Mark castañeda Valdez SAHNI [id number],C,4.2 Tam armenta MD [id number],C,260 Tam geovany SAHNI [id number],C,6.1 Tam armenta MD [id number],C,NEG UACR, EGF R 96 AND TSH Tam Valdez SAHNI [id number],C,will check ho id sleep study Mary Terry [employer] DES[employer] [id number],C,w ill check stress test, echo, home sleep study, PFTs, cxr, low dose CT l abs Mary Terry [employer] DES[employer] [id number],C,c urrent smoker 1ppd/45+ years. encouraged to cut down by half until able to quit. l ow dose CT, cxr, PFTs Mary Terry [employer] DES[employer] [id number],C, H is updated medication list for this problem includes: Atorvastatin 40 Mg Tablet (Atorvastatin) ..... Take 1 tablet by mouth everyday at bedtime lipid panel Mary Harrison KIMBALL [id number],C, B P today: 119/78 His updated medication list for this problem includes: Aspirin 81 Mg Tablet,chewable (Aspirin) ..... Take 1 tablet by mouth once a day Metoprolol Tartrate 25 Mg Tablet (Metoprolol tartrate) ..... Take 1/2 tablet by mouth once a day Valsartan 160 Mg Tablet (Valsartan) ..... Take 1 tablet by mouth once a day Amlodipine 5 Mg Tablet (Amlodipine) ..... Take 1 tablet by mouth once a day Mary Harrison KIMBALL [id number],C,( +) SOB c heck covid antibodies Mary Terry NP [id number],C,check stress test, ECHO, labs Mary Terry NP Cardiology: H ome sleep study shows an AHI of 27.2 which is consistent with moderate ROLY. Mean oxygen saturation of 93%, with t he lowest being 86%. A pri2023 N eeds a new mask for CPAP so he can tolerate using it. July 07, [address] CPAP, was unable to tolerate cpap. May benefit from inspire Junie Tinoco MD Cardiology:stable Junie carreon MD Cardiology: s topped smoking Junie Tinoco MD Cardiology:This visi t has been a part of the consistent, comprehensive, and ongoing management of the chronic medical condition(s) listed above for the patient. Junie Tinoco MD Cardiology:This visi t has been a part of the consistent, comprehensive, and ongoing management of the chronic medical condition(s) listed above for the patient. B P today: 124/86 P rior BP: 125/76 (01/10/2024) Labs Reviewed: C reat: 0.88 (10/13/2022) C hol: 135 (10/13/2022) HDL: 52 (10/13/2022) LDL: 65 (10/13/2022) T (10/13/2022) His updated medication list for this problem includes: Aspirin 81 Mg Tablet,chewable (Aspirin) ..... Take 1 tablet by mouth once a day Metoprolol Tartrate 25 Mg Tablet (Metoprolol tartrate) ..... Take 1/2 tablet by mouth once a day Valsartan 160 Mg Tablet (Valsartan) ..... Take 1 tablet by mouth once a day Amlodipine 5 Mg Tablet (Amlodipine) ..... Take 1 tablet by mouth once a day Junie Tinoco MD Cardiology:This visi t has been a part of the consistent, comprehensive, and ongoing management of the chronic medical condition(s) listed above for the patient. H as history of CAD with stenting in the past. He has had increasing fatigue, SOB and abnormal stress test. We will plan for cardiac cath for further evaluation. Continue medical management at this time. February 10, 2023 D ES x 1 LED 01/25/23 DAPT ASA Birlinta 12 months. May need to swithc to plavix if his SOB does not imporve. April 02, 2023 R EMAINON BRILINTA SINCE HE IS SMOKING AGAIN WILL REVISIT SITUATION IN 2M June 30, 2023 r emains on DAPT no bleeding August 11, 2023 N o angina. No bleeding issues on DAPT. January 10, 2024 N o angina. No bleeding issues on DAPT. July 07, 2024 S tress 11/05/22 CONCLUSIONS: 1 . Normal sinus rhythm. 2 . Mildly enlarged left ventricle. 3 . Abnormal LV fntn Mild left ventriclular dysfunction, mild to moderate left ventricular dysfunction, moderate left v entricular dysfunction, moderate to severe left ventricular dysfunction and severe left ventricular dysfunction. Left V entricular Ejection Fraction is 42 % TID: 1.09. 4 . Abnormal perfusion imaging in anterior wall with a moderate perfusion defect, which is large in size and has mild r eversibility. Abnormal perfusion imaging in the apical wall with a moderate perfusion defect, which is moderate in size and h as mild reversibility. 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 Junie Tinoco MD Cardiology: C ONCLUSIONS: 1 . Mild enlargement of right ventricle. Normal right ventricular systolic function. 2 . There is moderate enlargement of the left atrium. Left atrial volume index is 30.9 LA volume is 74 mL. 3 . Normal aortic root size. Sinus of Valsalva is normal. Sinus of Valsalva is 3.96 cm Ascending aorta is dilated. Ascending Aorta i s 4.20 cm. 4 . No valvular abnormalities Technically difficult study, limited views secondary to poor acoustic windows. Interpretation is based on available l imited views. Normal left ventricular systolic function. Normal left ventricular size. Moderate concentric left ventricular h ypertrophy. There is E to A wave reversal consistent with impaired LV relaxation. E/E': 9.2. Left ventricular ejection fraction is m easured at 55 %. Junie Tinoco MD Cardiology:Discussio n of benefits for remote patient monitoring took place. Patient gives consent for remote monitoring of physiologic parameters including, but not limited to, weight, blood pressure, pulse oximetry, respiratory flow rate. His updated medication list for this problem includes: Aspirin 81 Mg Tablet,chewable (Aspirin) ..... Take 1 tablet by mouth once a day Metoprolol Tartrate 25 Mg Tablet (Metoprolol tartrate) ..... Take 1/2 tablet by mouth once a day Valsartan 160 Mg Tablet (Valsartan) ..... Take 1 tablet by mouth once a day Amlodipine 5 Mg Tablet (Amlodipine) ..... Take 1 tablet by mouth once a day BP today: 125/76 P rior BP: 125/74 (08/11/2023) Labs Reviewed: C reat: 0.88 (10/13/2022) C hol: 135 (10/13/2022) HDL: 52 (10/13/2022) LDL: 65 (10/13/2022) T (10/13/2022) Junie Tnioco MD Cardiology: s topped smoking Junie Tinoco MD Cardiology:CONCLUSIO NS: 1 . Mild enlargement of right ventricle. Normal right ventricular systolic function. 2 . There is moderate enlargement of the left atrium. Left atrial volume index is 30.9 LA volume is 74 mL. 3 . Normal aortic root size. Sinus of Valsalva is normal. Sinus of Valsalva is 3.96 cm Ascending aorta is dilated. Ascending Aorta i s 4.20 cm. 4 . No valvular abnormalities Junie Tinoco MD Cardiology: H as history of CAD with stenting in the past. He has had increasing fatigue, SOB and abnormal stress test. We will plan for cardiac cath for further evaluation. Continue medical management at this time. February 10, 2023 D ES x 1 LED 01/25/23 DAPT ASA Birlinta 12 months. May need to swithc to plavix if his SOB does not imporve. April 02, 2023 R EMAINON BRILINTA SINCE HE IS SMOKING AGAIN WILL REVISIT SITUATION IN 2M June 30, 2023 r emains on DAPT no bleeding August 11, 2023 N o angina. No bleeding issues on DAPT. January 10, 2024 N o angina. No bleeding issues on DAPT. Junie Tinoco MD Cardiology:CONCLUSIO NS: 1 . Mild enlargement of right ventricle. Normal right ventricular systolic function. 2 . There is moderate enlargement of the left atrium. Left atrial volume index is 30.9 LA volume is 74 mL. 3 . Normal aortic root size. Sinus of Valsalva is normal. Sinus of Valsalva is 3.96 cm Ascending aorta is dilated. Ascending Aorta i s 4.20 cm. 4 . No valvular abnormalities Junie Tinoco MD Cardiology:Home slee p study shows an AHI of 27.2 which is consistent with moderate ROLY. Mean oxygen saturation of 93%, with t he lowest being 86%. A pristefania 2023 N eeds a new mask for CPAP so he can tolerate using it. Junie Tinoco MD Cardiology: C linically appears compensated. H is updated medication list for this problem includes: Brilinta 90 Mg Tablet (Ticagrelor) ..... 1 tablet by mouth twice a day Aspirin 81 Mg Tablet,chewable (Aspirin) ..... Take 1 tablet by mouth once a day Metoprolol Tartrate 25 Mg Tablet (Metoprolol tartrate) ..... Take 1/2 tablet by mouth once a day Valsartan 160 Mg Tablet (Valsartan) ..... Take 1 tablet by mouth once a day Isosorbide Mononitrate 60 Mg Tablet Extended Release 24 Hr (Isosorbide mononitrate) ..... Take 1 tablet by mouth every day Nitrostat 0.4 Mg Tablet, Sublingual (Nitroglycerin) ..... 1 tablet under tongue as directed as needed 1 tablet under tongue for chest pain. may repeat every 5 minutes if still having chest pain- to max of 3 tablets per episode.if no relief after 3rd dose, go to er Amlodipine 5 Mg Tablet (Amlodipine) ..... Take 1 tablet by mouth once a day Stephaniemel Sharon KIMBALL Cardiology: H as history of CAD with stenting in the past. He has had increasing fatigue, SOB and abnormal stress test. We will plan for cardiac cath for further evaluation. Continue medical management at this time. February 10, 2023 D ES x 1 LED 01/25/23 DAPT ASA Birlinta 12 months. May need to swithc to plavix if his SOB does not imporve. April 02, 2023 R EMAINON BRILINTA SINCE HE IS SMOKING AGAIN WILL REVISIT SITUATION IN 2M June 30, 2023 r emains on DAPT no bleeding August 11, 2023 N o angina. No bleeding issues on DAPT. Kahlil Herrera NP Cardiology: H is updated medication list for this problem includes: Atorvastatin 40 Mg Tablet (Atorvastatin) ..... Take 1 tablet by mouth everyday at bedtime Kahlil Herrera NP Cardiology: H ad been advised to stop Amlodipine at previous visit but he restarted as he was concerned that his BP was elevated. H is updated medication list for this problem includes: Aspirin 81 Mg Tablet,chewable (Aspirin) ..... Take 1 tablet by mouth once a day Metoprolol Tartrate 25 Mg Tablet (Metoprolol tartrate) ..... Take 1/2 tablet by mouth once a day Valsartan 160 Mg Tablet (Valsartan) ..... Take 1 tablet by mouth once a day Amlodipine 5 Mg Tablet (Amlodipine) ..... Take 1 tablet by mouth once a day BP today: 125/74 P rior BP: 121/78 (04/02/2023) Labs Reviewed: C reat: 0.88 (10/13/2022) C hol: 135 (10/13/2022) HDL: 52 (10/13/2022) Kahlil Wileyarmida [employer] Telehealth:stopped smoking Evita Tinoco MD Telehealth: H as history of CAD with stenting in the past. He has had increasing fatigue, SOB and abnormal stress test. We will plan for cardiac cath for further evaluation. Continue medical management at this time. February 10, 2023 D ES x 1 LED 01/25/23 DAPT ASA Birlinta 12 months. May need to swithc to plavix if his SOB does not imporve. April 02, 2023 R EMAINON BRILINTA SINCE HE IS SMOKING AGAIN WILL REVISIT SITUATION IN 2M June 30, 2023 r shannanins on DAPT no bleeding Junie Tinoco MD Telehealth:okay to s top amlodipine 5mg since BP was low 92/52 at pulmonary. H is updated medication list for this problem includes: Aspirin 81 Mg Tablet,chewable (Aspirin) ..... Take 1 tablet by mouth once a day Metoprolol Tartrate 25 Mg Tablet (Metoprolol tartrate) ..... Take 1/2 tablet by mouth once a day Valsartan 160 Mg Tablet (Valsartan) ..... Take 1 tablet by mouth once a day Amlodipine 5 Mg Tablet (Amlodipine) ..... Take 1 tablet by mouth once a day Junie Tinoco MD Cardiology: H as history of CAD with stenting in the past. He has had increasing fatigue, SOB and abnormal stress test. We will plan for cardiac cath for further evaluation. Continue medical management at this time. February 10, 2023 D ES x 1 LED 01/25/23 DAPT ASA Birlinta 12 months. May need to swithc to plavix if his SOB does not imporve. April 02, 2023 R EMAINON BRILINTA SINCE HE IS SMOKING AGAIN WILL REVISIT SITUATION IN 2M Junie Tinoco MD Cardiology:Needs titration study done. Junie Tinoco MD Cardiology:Stopped smoking. Halina Tinoco MD Cardiology: H as history of CAD with stenting in the past. He has had increasing fatigue, SOB and abnormal stress test. We will plan for cardiac cath for further evaluation. Continue medical management at this time. February 10, 2023 D ES x 1 LED 01/25/23 DAPT ASA Birlinta 12 months. May need to swithc to plavix if his SOB does not imporve. Junie Tinoco MD Cardiology:BP contro lled. 115/73 today. Will continue present medication regimen. H is updated medication list for this problem includes: Aspirin 81 Mg Tablet,chewable (Aspirin) ..... Take 1 tablet by mouth once a day Metoprolol Tartrate 25 Mg Tablet (Metoprolol tartrate) ..... Take 1/2 tablet by mouth once a day Valsartan 160 Mg Tablet (Valsartan) ..... Take 1 tablet by mouth once a day Amlodipine 5 Mg Tablet (Amlodipine) ..... Take 1 tablet by mouth once a day Angelasumi Weber [facility] Cardiology:noted on home sleep study. Will plan for titration eval [facility] Cardiology:lifestyle modificatio n encouraged[facility] Cardiology:Patient p re-diabetic and obese. He would benefit from GLP-1 to help with glycemic control and weight management in the setting of pre-diabetes and other co-morbid conditions. [facility] Cardiology:Has histo ry of CAD with stenting in the past. He has had increasing fatigue, SOB and abnormal stress test. We will plan for cardiac cath for further evaluation. Continue medical management at this time. H is updated medication list for this problem includes: Aspirin 81 Mg Tablet,chewable (Aspirin) ..... Take 1 tablet by mouth once a day Metoprolol Tartrate 25 Mg Tablet (Metoprolol tartrate) ..... Take 1/2 tablet by mouth once a day Isosorbide Mononitrate 60 Mg Tablet Extended Release 24 Hr (Isosorbide mononitrate) ..... Take 1 tablet by mouth every day Nitrostat 0.4 Mg Tablet, Sublingual (Nitroglycerin) ..... 1 tablet under tongue as directed as needed 1 tablet under tongue for chest pain. may repeat every 5 minutes if still having chest pain- to max of 3 tablets per episode.if no relief after 3rd dose, go to er Amlodipine 5 Mg Tablet (Amlodipine) ..... Take 1 tablet by mouth once a day Angela Romerolilian [facility] Cardiology: T he patient is between 55-77 years old and has smoked at least 30 pack years. The patient is either a current smoker or has quit within the past 15 years. T he patient is recommended to have low dose CT scan for lung cancer screening. Has been counseled regarding the importance of tobacco cessation and abstinence. Shared decision making during this office visit included discussion of the benefits and harms of screening, possible future recommendations of follow-up diagnostic testing, and total amount of radiation exposure. The patient was recommended to have annual low dose CT scan for lung cancer screening and is willing to undergo diagnosis and treatment. Angelasumi Weber [facility] :The patient is between 55-77 years old and has smoked at least 30 pack years. The patient is either a current smoker or has quit within the past 15 years. T he patient is recommended to have low dose CT scan for lung cancer screening. Has been counseled regarding the importance of tobacco cessation and abstinence. Shared decision making during this office visit included discussion of the benefits and harms of screening, possible future recommendations of follow-up diagnostic testing, and total amount of radiation exposure. The patient was recommended to have annual low dose CT scan for lung cancer screening and is willing to undergo diagnosis and treatment. Tam Kellogg MD [facility] : m od Tam Kellogg MD [facility] : 6 .1 Tam Kellogg MD [facility] :up to d dateo on colon Tam Kellogg MD [facility] Tam Kellogg MD [facility] Tam Kellogg MD [facility] : N EG UACR, EGFR 96 AND TSH Tam Kellogg MD [facility] Tam Kellogg MD [facility] Tam Kellogg MD [facility] : 2 60 Tam Kellogg MD [facility] : 4 .2 Tam Kellogg MD [facility] Tam Kellogg MD [facility] : p os nuc after remote stent Tam Kellogg MD needs titration-requ est for precert sent 11/11/22:mod Tam Kellogg MD :pos nuc Tam Kellogg MD :4.2 Tam Kellogg MD :260 Tam Kellogg MD :6.1 Tam Kellogg MD :NEG UACR, EGFR 96 AND TSH Mark Kellogg MD Cardiology:will check home sleep study Mary Terry NP Cardiology:will chec k stress test, echo, home sleep study, PFTs, cxr, low dose CT l abs Mary Terry NP Cardiology:current s jewel 1ppd/45+ years. encouraged to cut down by half until able to quit. l ow dose CT, cxr, PFTs Mary Terry NP Cardiology: H is updated medication list for this problem includes: Atorvastatin 40 Mg Tablet (Atorvastatin) ..... Take 1 tablet by mouth everyday at bedtime lipid panel Mary Terry NP Cardiology: B P today: 119/78 His updated medication list for this problem includes: Aspirin 81 Mg Tablet,chewable (Aspirin) ..... Take 1 tablet by mouth once a day Metoprolol Tartrate 25 Mg Tablet (Metoprolol tartrate) ..... Take 1/2 tablet by mouth once a day Valsartan 160 Mg Tablet (Valsartan) ..... Take 1 tablet by mouth once a day Amlodipine 5 Mg Tablet (Amlodipine) ..... Take 1 tablet by mouth once a day Mary Thaodanny [employer] Cardiology:(+) SOB c heck covid antibodies Mary Terry [employer] Cardiology:check stress test, EC HO, labs Mary Terry [employer] DES[employer] Date Name EKG X-Ray, Lumbar Spine CT Lumbar Spine with out contrast Sleep Study Titratio n Low Dose Lung CT Lipoprotein (a) PROTHROMBIN TIME WIT H INR LIPID PANEL CBC (INCLUDES DIFF/P LT) BASIC METABOLIC PANE L W/EGFR DLCO - 75024 FRC - 40010 FVC - 44913 Sleep Study Titratio n Carotid Duplex Bilat eral PROTHROMBIN TIME WIT H INR CBC (INCLUDES DIFF/P LT) BASIC METABOLIC PANE L W/EGFR Cardiac Cath - Left - GC Renal Artery Duplex Low Dose Lung CT DLCO - 61878 FRC - 04561 FVC - 47258 Sleep Study Titratio n COVID19 High Affinit y Antibodies (LC) Vitamin D, 25-Hydrox y VITAMIN B12/FOLATE, SERUM PANEL Microalb/Creatinine Urine, Random HEMOGLOBIN A1c IRON AND TOTAL IRON BINDING CAPACITY FERRITIN CBC (INCLUDES DIFF/P LT) LIPID PANEL TSH, free T4, total T3 CRP, high sensitivit y PROBNP, N TERMINAL COMPREHENSIVE METABO LIC PANEL, W/EGFR CXR- PA/Lat Low Dose Lung CT DLCO - 58385 FRC - 16432 FVC - 50734 Stress Regadenoson Complete Echo Sleep Study Home Preop clearance, phn /internet/emr >5min HISTORY OF PROCEDURES Procedure Date Procedure Name Provider Procedure Notes S tatus Complex e/m visit add on Junie Tinoco MD completed EKG Junie Tinoco MD compl eted EKG Junie Tinoco MD compl eted EKG Junie Tinoco MD compl eted EKG Junie Tinoco MD compl eted Counseling LDCT Tam Kellogg MD com pleted Counseling LDCT Tam Kellogg MD com pleted Spirometry Tam Kellogg MD complete d FVC / MVV with bronchodilator - 03981 Tam Kellogg MD completed FRC - 67892 Tam Kellogg MD complet ed SpO2 w/o 6min walk/titration Tam Kellogg MD completed SVC - 94304 Tam Kellogg MD complet ed DLCO - 49077 Tam Kellogg MD comple mor Counseling LDCT Tam Kellogg MD com pleted EKG Tam Kellogg MD complete d
--- OUTSIDE RECORDS SUMMARY | 2024-11-06 00:42 | XMS_ITS | Encounter Summary ---
Author Organization [facility] Address [address] [place] [address] Care Team Providers [employer] Name Role Phone Marcos Pisano MD Primary Care Provider Encounter Details Date Type Department Care Team (Late st Contact Info) Description 02/05/2017 Orders Only [facility] ProviderMaximo MD [facility] [place] [address] Social History Tobacco Use Types Packs/Day Years Used Date Smoking Tobacco: Former Cigarettes Q uit: 09/27/2014 Comments:Smoking History Pac ks/day: 1 Packs Alcohol Use Standard Drinks/Week Comments Yes 0 (1 standard drink = 0.6 oz pur e alcohol) Sex and Gender Information Value Date Recorded Sex Assigned at Not on file 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 Historical Provider [facility] Final Result documented in this encounter Visit Diagnoses Not on filedocumented in this encounter Care Teams [employer] Relationship Specialty Start Date End Date Marcos Pisano MD PCP - General 12/25/16 documented as of this encounter
--- OUTSIDE RECORDS SUMMARY | 2024-11-06 00:42 | XMS_ITS | Data Portability ---
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 He does take his aspirin his other medications have been reviewed. He was warned of the ill effects of tobacco which were included but not limited to increased incidence of heart attack stroke cancer of multiple multiple organ systems that can lead to sudden or chronic medical illness. I will see him back in about 6 weeks we will get him set up with physical therapy I will give him a little Flexeril to use at night 10 mg #20 blood work has been reviewed we will obtain urinalysis he will be due for his next LDCT in January of this year [email or web address] Not available 01/04/2024 22:29:48 02/09/2024 02/09/2024 This episode of low back pain is resolved he does need to get a colonoscopy because of his positive Cologuard we will check with cardiology to make sure that he can come off of antiplatelet therapy or if they have any contraindications for him to get this test done follow-up with me in 3 months [email or web address] Not available 02/09/2024 21:43:58 06/07/2024 06/07/2024 point of care CO VID test is positive Paxlovid isolate for 5 days wear mask for 10 days push fluids can use Tylenol for aches and pains call if breathing problems. Obesity healthy lifestyle care instructions CAD secondary preventative measures for CAD discussed GERD appears to be stable clinically hyperlipidemia labs blood pressure controlled regular follow up 3 months he needs to get his colonoscopy done has cardiac clearance. [email or web address] Not available 06/11/2024 16:55:50 08/09/2024 08/09/2024 blood work. Quitting tobacco care instructions. Healthy lifestyle instructions. Colonoscopy and I could not recommend strong enough that he needs to get this done. He already has cardiac clearance for it. Secondary preventive measures for heart disease and vascular disease discussed. Follow up 4 months. [email or web address] Not available 08/20/2024 15:58:43 Plan of Treatment Reminders Order Date Submit Date Provider Last Modified By Organization Details Last Modified Time Details Appointments ANY 15 2024 01:15P M Juanita Ray MD Not available Not available Not available Lab urinalysi s, microscop ic 2023 024 [email or web address], [address], [place], [address], 01/05/2024 09:16:21 rapid SARS CoV 2 Ag, QL IA, respirato ry specimen 2023 024 [email or web address] In-Office Order, Internal Use Only DO Not Attach Compendium DO Not Attach Compendium, Do Not Delete/merge, [id number] 06/07/2024 16:00:33 lipid panel, serum 2023 024 [facility], [address], [place], [address], 10/17/2024 12:30:47 CBC w/ auto diff 2023 024 [facility] [address], [place], [address], 10/17/2024 12:30:47 CMP, serum or plasma 2023 024 [facility], [address], [place], [address], 10/17/2024 12:30:47 Referral physical therapist referral 2023 024 [facility] [place], [address] [place] [address], [place], [address], 09/25/2024 09:41:45 Procedures colonosco py procedure (PROC) 2023 024 [facility], [address], [address], [place], [address], 2024 12:05:53 Surgeries None recorded. Imaging LDCT, chest, for lung cancer screening 2023 024 [facility] ([facility]), [address], [place], [address], 10/18/2024 12:52:41 Medication Orders aspirin 81 mg chewable tablet 2022 023 [facility][id number], [address], [place], [place], [id number], 08/02/2023 13:18:17 isosorbid e mononitra te ER 60 mg tablet,ex tended release 24 hr 2022 023 [facility] #[id number], [address], [place], [place], [id number], 08/02/2023 13:18:17 pantopraz ole 40 mg tablet,de layed release 2022 023 [facility] #12276, [address], [place], [place], [id number], 08/02/2023 13:18:18 amlodipin e 5 mg tablet 2022 023 [facility]15154, [address], [place], [place], [id number], 08/02/2023 13:19:12 metoprolo l tartrate 25 mg tablet 2022 023 [facility] #33140, [address], [place], [place], [id number], 08/02/2023 13:18:15 valsartan 160 mg tablet 2022 023 [facility] #17895, [address], [place], [place], [id number], 08/02/2023 13:18:19 atorvasta tin 40 mg tablet 2022 023 [facility] #05171, [address], [place], [place], [id number], 08/02/2023 13:18:17 cyclobenz aprine 10 mg tablet 2023 024 [facility]16548, [address], [place], [place], [id number], 06/07/2024 14:19:31 Patient TargetsNo targets recorded. Patient Instructions Encounter Date Encounter Id Patient Instructions Last Modified By Organization Details Last Modified Time 08/02/2023 [id number] A healthy lifestyle: care instructions [email or web address] Not available 08/02/2023 13:18:02 06/07/2024 [id number] A healthy lifestyle: care instructions [email or web address] Not available 06/07/2024 16:00:33 08/09/2024 [id number] A healthy lifestyle: care instructions [email or web address] Not available 08/09/2024 15:05:51 Quitting Tobacco : Care Instructions [email or web address] Not available 08/09/2024 15:05:51 Reason for Referral Physical Therapist Referral for Low back pain Referring Physician: Juanita Ray, Internal Medicine, Encounter Date: 01/04/2024 Results Created Date Observation Date Name Description Value Unit Range Abnormal Flag Note LastModifiedBy Organization Detail LastModifiedTime 12/29/19 24 12/30/2023 LIPID PANEL cholesterol, total 152 mg/dL 100-19 9 Not Available [facility] ([facility]) [address], [place], [address], 12/30/2023 06:19:16 12/29/19 24 12/30/2023 LIPID PANEL triglyceride s 121 mg/dL 0-149 Not Available [facility] ([facility]) [address] [place], [address], 12/30/2023 06:19:16 12/29/19 24 12/30/2023 LIPID PANEL HDL cholesterol 51 mg/dL >39 Not Available [facility] ([facility]) [address] [place], [address], 12/30/2023 06:19:16 12/29/19 24 12/30/2023 LIPID PANEL VLDL cholesterol jeronimo 22 mg/dL 5-40 Not Available [facility] ([facility]) [address] [place], [address], 12/30/2023 06:19:16 12/29/19 24 12/30/2023 LIPID PANEL LDL chol calc ([facility]) 79 mg/dL 0-99 Not Available [facility] ([facility]) [address] [place], [address], 12/30/2023 06:19:16 12/29/19 24 12/30/2023 COMP. METAB OLIC PANEL (14) glucose 95 mg/dL 70-99 Not Available [facility] ([facility]) [address] [place], [address], 12/30/2023 06:19:17 12/29/19 24 12/30/2023 COMP. METAB OLIC PANEL (14) BUN 9 mg/dL 8-27 Not Available [facility] ([facility]) [address] [place], [address], 12/30/2023 06:19:17 12/29/19 24 12/30/2023 COMP. METAB OLIC PANEL (14) creatinine 0.90 mg/dL 0.76-1 .27 Not Available [facility] ([facility] [facility]) [address], [place], [address], 12/30/2023 06:19:17 12/29/19 24 12/30/2023 COMP. METAB OLIC PANEL (14) eGFR 96 mL/mi n/1.7 3 >59 Not Available [facility] ([facility]) [address], [place], [address], 12/30/2023 06:19:17 12/29/19 24 12/30/2023 COMP. METAB OLIC PANEL (14) BUN/creatini ne ratio 10 10-24 Not Available [facility] ([facility]) [address], [place], [address], 12/30/2023 06:19:17 12/29/19 24 12/30/2023 COMP. METAB OLIC PANEL (14) sodium 142 mmol/ L 134-14 4 Not Available [facility] ([facility]) [address], [place], [address], 12/30/2023 06:19:17 12/29/19 24 12/30/2023 COMP. METAB OLIC PANEL (14) potassium 4.9 mmol/ L 3.5-5. 2 Not Available [facility] ([place] [facility]) [address], [place], [address], 12/30/2023 06:19:17 12/29/19 24 12/30/2023 COMP. METAB OLIC PANEL (14) chloride 103 mmol/ L 96-106 Not Available [facility] ([facility] [facility]) [address], [place], [address], 12/30/2023 06:19:17 12/29/19 24 12/30/2023 COMP. METAB OLIC PANEL (14) carbon dioxide, total 25 mmol/ L 20-29 Not Available [facility] ([facility] [facility]) [address], [place], [address], 12/30/2023 06:19:17 12/29/19 24 12/30/2023 COMP. METAB OLIC PANEL (14) calcium 9.3 mg/dL 8.6-10 .2 Not Available [facility] ([facility]) [address], [place], [address], 12/30/2023 06:19:17 12/29/19 24 12/30/2023 COMP. METAB OLIC PANEL (14) protein, total 6.9 g/dL 6.0-8. 5 Not Available [facility] ([facility]) [address] [place], [address], 12/30/2023 06:19:17 12/29/19 24 12/30/2023 COMP. METAB OLIC PANEL (14) albumin 4.1 g/dL 3.9-4. 9 Not Available [facility] ([facility]) [address], [place], [address], 12/30/2023 06:19:17 12/29/19 24 12/30/2023 COMP. METAB OLIC PANEL (14) globulin, total 2.8 g/dL 1.5-4. 5 Not Available [facility] ([facility]) [address], [place], [address], 12/30/2023 06:19:17 12/29/19 24 12/30/2023 COMP. METAB OLIC PANEL (14) A/G ratio 1.5 1.2-2. 2 Not Available [facility] ([facility]) [address] [place], [address], 12/30/2023 06:19:17 12/29/19 24 12/30/2023 COMP. METAB OLIC PANEL (14) bilirubin, total 0.5 mg/dL 0.0-1. 2 Not Available [facility] ([facility]) [address] [place], [address], 12/30/2023 06:19:17 12/29/19 24 12/30/2023 COMP. METAB OLIC PANEL (14) alkaline phosphatase 103 IU/L 44-121 Not Available [facility] ([facility]) [address], [place], [address], 12/30/2023 06:19:17 12/29/19 24 12/30/2023 COMP. METAB OLIC PANEL (14) AST (SGOT) 14 IU/L 0-40 Not Available [facility] ([facility]) [address], [place], [address], 12/30/2023 06:19:17 12/29/19 24 12/30/2023 COMP. METAB OLIC PANEL (14) ALT (SGPT) 14 IU/L 0-44 Not Available [facility] ([facility]) [address], [place], [address], 12/30/2023 06:19:17 12/29/19 24 12/30/2023 CBC WITH DIFFE RENTI AL/PL ATELE T WBC 11.9 x10e3 /uL 3.4-10 .8 above high normal Not Available [facility] ([facility]) [address], [place], [address], 12/30/2023 06:19:17 12/29/19 24 12/30/2023 CBC WITH DIFFE RENTI AL/PL ATELE T RBC 5.26 x10e6 /uL 4.14-5 .80 Not Available [facility] ([facility]) [address], [place], [address], 12/30/2023 06:19:17 12/29/19 24 12/30/2023 CBC WITH DIFFE RENTI AL/PL ATELE T hemoglobin 16.1 g/dL 13.0-1 7.7 Not Available [facility] ([facility]) [address], [place], [address], 12/30/2023 06:19:17 12/29/19 24 12/30/2023 CBC WITH DIFFE RENTI AL/PL ATELE T hematocrit 49.0 % 37.5-5 1.0 Not Available [facility] ([facility]) [address], [place], [address], 12/30/2023 06:19:17 12/29/19 24 12/30/2023 CBC WITH DIFFE RENTI AL/PL ATELE T MCV 93 fL 79-97 Not Available [facility] ([facility]) [address], [place], [address], 12/30/2023 06:19:17 12/29/1912/30/2023 CBC WITH DIFFE RENTI AL/PL ATELE T MCH 30.6 pg 26.6-3 3.0 Not Available [facility] ([facility]) [address], [place], [address], 12/30/2023 06:19:17 12/29/19 24 12/30/2023 CBC WITH DIFFE RENTI AL/PL ATELE T MCHC 32.9 g/dL 31.5-3 5.7 Not Available [facility] ([facility]) [address], [place], [address], 12/30/2023 06:19:17 12/29/19 24 12/30/2023 CBC WITH DIFFE RENTI AL/PL ATELE T RDW 13.0 % 11.6-1 5.4 Not Available [facility] ([facility]) [address], [place], [address], 12/30/2023 06:19:17 12/29/1912/30/2023 CBC WITH DIFFE RENTI AL/PL ATELE T platelets 292 x10e3 /uL 150-45 0 Not Available [facility] ([facility]) [address], [place], [address], 12/30/2023 06:19:17 12/29/19 24 12/30/2023 CBC WITH DIFFE RENTI AL/PL ATELE T neutrophils 65 % notest ab. Not Available [facility] ([facility]) [address], [place], [address], 12/30/2023 06:19:17 12/29/19 24 12/30/2023 CBC WITH DIFFE RENTI AL/PL ATELE T lymphs 21 % notest ab. Not Available [facility] ([facility]) [address], [place], [address], 12/30/2023 06:19:17 12/29/19 24 12/30/2023 CBC WITH DIFFE RENTI AL/PL ATELE T monocytes 10 % notest ab. Not Available [facility] ([facility]) [address], [place], [address], 12/30/2023 06:19:17 12/29/19 24 12/30/2023 CBC WITH DIFFE RENTI AL/PL ATELE T eos 3 % notest ab. Not Available [facility] ([facility]) [address] [place], [address], 12/30/2023 06:19:17 12/29/19 24 12/30/2023 CBC WITH DIFFE RENTI AL/PL ATELE T basos 1 % notest ab. Not Available [facility] ([facility]) [address], [place], [address], 12/30/2023 06:19:17 12/29/19 24 12/30/2023 CBC WITH DIFFE RENTI AL/PL ATELE T neutrophils (absolute) 7.7 x10e3 /uL 1.4-7. 0 above high normal Not Available [facility] ([facility]) [address], [place], [address], 12/30/2023 06:19:17 12/29/19 24 12/30/2023 CBC WITH DIFFE RENTI AL/PL ATELE T lymphs (absolute) 2.5 x10e3 /uL 0.7-3. 1 Not Available [facility] ([facility]) [address], [place], [address], 12/30/2023 06:19:17 12/29/19 24 12/30/2023 CBC WITH DIFFE RENTI AL/PL ATELE T monocytes(ab solute) 1.2 x10e3 /uL 0.1-0. 9 above high normal Not Available [facility] ([facility]) [address], [place], [address], 12/30/2023 06:19:17 12/29/1912/30/2023 CBC WITH DIFFE RENTI AL/PL ATELE T eos (absolute) 0.4 x10e3 /uL 0.0-0. 4 Not Available [facility] ([facility]) [address], [place], [address], 12/30/2023 06:19:17 12/29/19 24 12/30/2023 CBC WITH DIFFE RENTI AL/PL ATELE T baso (absolute) 0.1 x10e3 /uL 0.0-0. 2 Not Available [facility] ([facility]) [address], [place], [address], 12/30/2023 06:19:17 12/29/19 24 12/30/2023 CBC WITH DIFFE RENTI AL/PL ATELE T immature granulocytes 0 % notest ab. Not Available [facility] ([facility]) [address], [place], [address], 12/30/2023 06:19:17 12/29/19 24 12/30/2023 CBC WITH DIFFE RENTI AL/PL ATELE T immature grans (abs) 0.0 x10e3 /uL 0.0-0. 1 Not Available [facility] ([facility]) [address] [place], [address], 12/30/2023 06:19:17 12/29/19 24 12/30/2023 PROST ATE-S PECIF IC AG prostate specific Ag 3.7 NG/mL 0.0-4. 0 [facility] ECLIA metho dolog y. Accor ding to the Ameri can [employer]o g[employer] iatio n, Serum PSA shoul d decre ase and remai n at undet ectab le level s after radic al prost atect kelly. The AUA defin es bioch emica l recur rence as an initi al PSA value 0.2 ng/mL or great er follo wed by a subse quent confi rmato ry PSA value 0.2 ng/mL or great er. Value s obtai yoselyn with diffe rent assay metho ds or kits canno t be used inter cruz eably . Resul ts canno t be inter prete d as absol spike evide nce of the prese nce or absen ce of [facility] se. Not Available [facility] ([facility]) [address] [place], [address], 12/30/2023 06:19:18 01/04/20 24 01/05/2024 MICRO SCOPI C EXAMI NATIO N WBC 0-5 /hpf 0-5 Not Available [facility] ([facility]) [address] [place], [address], 01/05/2024 09:16:21 01/04/20 24 01/05/2024 MICRO SCOPI C EXAMI NATIO N RBC None seen /hpf 0-2 Not Available [facility] ([facility]) [address] [place], [address], 01/05/2024 09:16:21 01/04/20 24 01/05/2024 MICRO SCOPI C EXAMI NATIO N epithelial cells (non renal) None seen /hpf 0-10 Not Available [facility] ([facility]) [address] [place], [address], 01/05/2024 09:16:21 01/04/20 24 01/05/2024 MICRO SCOPI C EXAMI NATIO N casts None seen /lpf nonese en Not Available [facility] ([facility]) [address], [place], [address], 01/05/2024 09:16:21 01/04/20 24 01/05/2024 MICRO SCOPI C EXAMI NATIO N bacteria None seen nonese en/few Not Available [facility] ([facility]) [address], [place], [address], 01/05/2024 09:16:21 06/07/20 24 06/07/2024 rapid SARS CoV 2 Ag, QL IA, respi rator y speci men rapid SARS CoV 2 Ag, QL IA, respiratory specimen positi ve Not Available In-Office Order Internal Use Only DO Not Attach Compendium DO Not Attach Compendium, Do Not Delete/merge, [id number] 06/07/2024 14:45:22 06/19/20 24 06/20/2024 LIPID PANEL cholesterol, total 147 mg/dL 100-19 9 Not Available [facility] ([facility]) [address], [place], [address], 06/20/2024 08:27:25 06/19/20 24 06/20/2024 LIPID PANEL triglyceride s 130 mg/dL 0-149 Not Available [facility] ([facility]) [address], [place], [address], 06/20/2024 08:27:25 06/19/20 24 06/20/2024 LIPID PANEL HDL cholesterol 55 mg/dL >39 Not Available [facility] ([facility]) [address], [place], [address], 06/20/2024 08:27:25 06/19/20 24 06/20/2024 LIPID PANEL VLDL cholesterol jeronimo 23 mg/dL 5-40 Not Available [facility] ([facility]) [address], [place], [address], 06/20/2024 08:27:25 06/19/20 24 06/20/2024 LIPID PANEL LDL chol calc ([facility]) 69 mg/dL 0-99 Not Available [facility] ([facility]) [address] [place], [address], 06/20/2024 08:27:25 06/19/20 24 06/20/2024 COMP. METAB OLIC PANEL (14) glucose 101 mg/dL 70-99 above high normal Not Available [facility] ([facility]) [address] [place], [address], 06/20/2024 08:27:26 06/19/20 24 06/20/2024 COMP. METAB OLIC PANEL (14) BUN 10 mg/dL 8-27 Not Available [facility] ([facility]) [address] [place], [address], 06/20/2024 08:27:26 06/19/20 24 06/20/2024 COMP. METAB OLIC PANEL (14) creatinine 0.89 mg/dL 0.76-1 .27 Not Available [facility] ([facility]) [address] [place], [address], 06/20/2024 08:27:26 06/19/20 24 06/20/2024 COMP. METAB OLIC PANEL (14) eGFR 96 mL/mi n/1.7 3 >59 Not Available [facility] ([facility]) [address] [place], [address], 06/20/2024 08:27:26 06/19/20 24 06/20/2024 COMP. METAB OLIC PANEL (14) BUN/creatini ne ratio 11 10-24 Not Available [facility] ([facility]) [address] [place], [address], 06/20/2024 08:27:26 06/19/20 24 06/20/2024 COMP. METAB OLIC PANEL (14) sodium 138 mmol/ L 134-14 4 Not Available [facility] ([facility]) [address] [place], [address], 06/20/2024 08:27:26 06/19/20 24 06/20/2024 COMP. METAB OLIC PANEL (14) potassium 4.4 mmol/ L 3.5-5. 2 Not Available [facility] ([facility]) [address] [place], [address], 06/20/2024 08:27:26 06/19/20 24 06/20/2024 COMP. METAB OLIC PANEL (14) chloride 101 mmol/ L 96-106 Not Available [facility] ([facility]) [address] [place], [address], 06/20/2024 08:27:26 06/19/20 24 06/20/2024 COMP. METAB OLIC PANEL (14) carbon dioxide, total 24 mmol/ L 20-29 Not Available [facility] ([facility]) [address] [place], [address], 06/20/2024 08:27:26 06/19/20 24 06/20/2024 COMP. METAB OLIC PANEL (14) calcium 9.3 mg/dL 8.6-10 .2 Not Available [facility] ([facility]) [address] [place], [address], 06/20/2024 08:27:26 06/19/20 24 06/20/2024 COMP. METAB OLIC PANEL (14) protein, total 6.7 g/dL 6.0-8. 5 Not Available [facility] ([facility]) [address] [place], [address], 06/20/2024 08:27:26 06/19/20 24 06/20/2024 COMP. METAB OLIC PANEL (14) albumin 4.2 g/dL 3.9-4. 9 Not Available [facility] ([facility]) [address] [place], [address], 06/20/2024 08:27:26 06/19/20 24 06/20/2024 COMP. METAB OLIC PANEL (14) globulin, total 2.5 g/dL 1.5-4. 5 Not Available [facility] ([facility]) [address] [place], [address], 06/20/2024 08:27:26 06/19/20 24 06/20/2024 COMP. METAB OLIC PANEL (14) bilirubin, total 0.6 mg/dL 0.0-1. 2 Not Available [facility] ([facility]) [address] [place], [address], 06/20/2024 08:27:26 06/19/20 24 06/20/2024 COMP. METAB OLIC PANEL (14) alkaline phosphatase 118 IU/L 44-121 Not Available [facility] ([facility]) [address] [place], [address], 06/20/2024 08:27:26 06/19/20 24 06/20/2024 COMP. METAB OLIC PANEL (14) AST (SGOT) 17 IU/L 0-40 Not Available [facility] ([facility]) [address] [place], [address], 06/20/2024 08:27:26 06/19/20 24 06/20/2024 COMP. METAB OLIC PANEL (14) ALT (SGPT) 21 IU/L 0-44 Not Available [facility] ([facility]) [address] [place], [address], 06/20/2024 08:27:26 06/19/20 24 06/20/2024 CBC WITH DIFFE RENTI AL/PL ATELE T WBC 11.6 x10e3 /uL 3.4-10 .8 above high normal Not Available [facility] ([facility]) [address] [place], [address], 06/20/2024 08:27:27 06/19/20 24 06/20/2024 CBC WITH DIFFE RENTI AL/PL ATELE T RBC 4.93 x10e6 /uL 4.14-5 .80 Not Available [facility] ([facility]) [address], [place], [address], 06/20/2024 08:27:27 06/19/2006/20/2024 CBC WITH DIFFE RENTI AL/PL ATELE T hemoglobin 15.8 g/dL 13.0-1 7.7 Not Available [facility] ([facility]) [address] [place], [address], 06/20/2024 08:27:27 06/19/2006/20/2024 CBC WITH DIFFE RENTI AL/PL ATELE T hematocrit 47.9 % 37.5-5 1.0 Not Available [facility] ([facility]) [address] [place], [address], 06/20/2024 08:27:27 06/19/2006/20/2024 CBC WITH DIFFE RENTI AL/PL ATELE T MCV 97 fL 79-97 Not Available [facility] ([facility]) [address] [place], [address], 06/20/2024 08:27:27 06/19/2006/20/2024 CBC WITH DIFFE RENTI AL/PL ATELE T MCH 32.0 pg 26.6-3 3.0 Not Available [facility] ([facility]) [address] [place], [address], 06/20/2024 08:27:27 06/19/20 24 06/20/2024 CBC WITH DIFFE RENTI AL/PL ATELE T MCHC 33.0 g/dL 31.5-3 5.7 Not Available [facility] ([facility]) [address] [place], [address], 06/20/2024 08:27:27 06/19/20 24 06/20/2024 CBC WITH DIFFE RENTI AL/PL ATELE T RDW 12.1 % 11.6-1 5.4 Not Available [facility] ([facility]) [address], [place], [address], 06/20/2024 08:27:27 06/19/20 24 06/20/2024 CBC WITH DIFFE RENTI AL/PL ATELE T platelets 239 x10e3 /uL 150-45 0 Not Available [facility] ([facility]) [address], [place], [address], 06/20/2024 08:27:27 06/19/20 24 06/20/2024 CBC WITH DIFFE RENTI AL/PL ATELE T neutrophils 67 % notest ab. Not Available [facility] ([facility]) [address], [place], [address], 06/20/2024 08:27:27 06/19/20 24 06/20/2024 CBC WITH DIFFE RENTI AL/PL ATELE T lymphs 18 % notest ab. Not Available [facility] ([facility]) [address], [place], [address], 06/20/2024 08:27:27 06/19/2006/20/2024 CBC WITH DIFFE RENTI AL/PL ATELE T monocytes 11 % notest ab. Not Available [facility] ([facility]) [address], [place], [address], 06/20/2024 08:27:27 06/19/20 24 06/20/2024 CBC WITH DIFFE RENTI AL/PL ATELE T eos 3 % notest ab. Not Available [facility] ([facility]) [address], [place], [address], 06/20/2024 08:27:27 06/19/20 24 06/20/2024 CBC WITH DIFFE RENTI AL/PL ATELE T basos 1 % notest ab. Not Available [facility] ([facility]) [address] [place], [address], 06/20/2024 08:27:27 06/19/20 24 06/20/2024 CBC WITH DIFFE RENTI AL/PL ATELE T neutrophils (absolute) 7.8 x10e3 /uL 1.4-7. 0 above high normal Not Available [facility] ([facility]) [address] [place], [address], 06/20/2024 08:27:27 06/19/2006/20/2024 CBC WITH DIFFE RENTI AL/PL ATELE T lymphs (absolute) 2.0 x10e3 /uL 0.7-3. 1 Not Available [facility] ([facility]) [address] [place], [address], 06/20/2024 08:27:27 06/19/20 24 06/20/2024 CBC WITH DIFFE RENTI AL/PL ATELE T monocytes(ab solute) 1.3 x10e3 /uL 0.1-0. 9 above high normal Not Available [facility] ([facility]) [address] [place], [address], 06/20/2024 08:27:27 06/19/20 24 06/20/2024 CBC WITH DIFFE RENTI AL/PL ATELE T eos (absolute) 0.4 x10e3 /uL 0.0-0. 4 Not Available [facility] ([facility]) [address] [place], [address], 06/20/2024 08:27:27 06/19/20 24 06/20/2024 CBC WITH DIFFE RENTI AL/PL ATELE T baso (absolute) 0.1 x10e3 /uL 0.0-0. 2 Not Available [facility] ([facility]) [address] [place], [address], 06/20/2024 08:27:27 06/19/20 24 06/20/2024 CBC WITH DIFFE RENTI AL/PL ATELE T immature granulocytes 0 % notest ab. Not Available [facility] ([facility]) [address], [place], [address], 06/20/2024 08:27:27 06/19/20 24 06/20/2024 CBC WITH DIFFE RENTI AL/PL ATELE T immature grans (abs) 0.0 x10e3 /uL 0.0-0. 1 Not Available [facility] ([facility]) [address], [place], [address], 06/20/2024 08:27:27 12/28/19 24 12/28/2023 XR, lumba r spine No observ ation record ed. [address] [place], [address], 01/02/2024 17:35:02 12/29/19 24 12/28/2023 CT, lumba r spine , w/o contr ast No observ ation record ed. [address] [place], [address], 01/02/2024 17:35:02 Result Notes None recorded. Problems Name Problem SNOMED Code Status Onset Date Resolution Date Notes Provider Name and Address Organization Details Recorded Time Stented coronary artery 066963212 Active 2020 Not Available [facility] 3 04:41:16 Hyperlipi demia 88906576 Active 2020 Not Available [facility] 3 04:41:16 Coronary atheroscl erosis 444164319 Active 2020 Dr. Earnest Ray MD Attn: Accounting ,[address] [facility], [place], [address] , [facility] 4 21:42:04 Essential hypertens ion 50497736 Active 2020 Not Available [facility] 3 04:41:16 Acute bronchiti s 94971119 Active 2020 Not Available [facility] 3 04:41:15 Gastroeso phageal reflux disease 515752767 Active 2020 Not Available [facility] 3 04:41:16 Osteoarth ritis 460645868 Active 2020 hips knees shoulders Not Available [facility] 3 04:41:16 Tinea pedis 6156748 Active 2020 Not Available [facility] 3 04:41:16 Screening for malignant neoplasm of prostate Active 2020 Not Available [facility] 3 04:41:16 At increased risk of nutrition al deficit 137320776 Active 2020 Not Available [facility] 3 04:41:16 Vitamin D below reference range 195185322 Active 2021 Not Available [facility] 3 04:41:16 Tobacco user 025253383 Active 2021 Not Available [facility] 3 04:41:15 Screening for malignant neoplasm of colon Active 2021 Not Available [facility] 3 04:41:16 HIV screening Active 2021 Not Available [facility] 3 04:41:16 Chronic folliculi tis 815062431 Active 2021 Not Available [facility] 3 04:41:15 Acute right otitis media 183175993 Active 2021 Not Available [facility] 3 04:41:16 Allergic rhinitis 73778656 Active 2021 Not Available [facility] 3 04:41:16 Gastroeso phageal reflux disease without esophagit is 856824679 Active 2023 Juanita Ray MD Attn: [place], [address] , [facility] 4 14:26:57 Obstructi ve sleep apnea syndrome 80839709 Active 2023 Juanita Ray MD Attn: Accounting ,[address] [place], [address] , [place] [facility] 4 14:27:47 Low back pain 491642700 Active 2023 Tatianna [place] MA null, [place] [facility] 4 14:50:56 Staphyloc occal infection of skin 969321864 Active 2023 Tatianna [place] [facility] 4 10:57:50 Colorecta l cancer detected by DNA-based stool screening 969550607 Active 2023 Tatianna [place] [facility] 4 15:43:50 Nicotine dependenc e 11446327 Active 2023 Tatianna [place] [facility] 4 15:43:51 Mechanica l low back pain 929508172 Active 2023 Juanita Ray MD Attn: Accounting ,[address] [place], [address] , [place] [facility] 4 21:44:13 Problem Notes None recorded. Procedures Surgical History Date Name Laterality Status Provider Name and Address Organization Details Recorded Time replacement of stent completed Ashley [place] MA [place] - [facility] 01/04/2024 14:04:33 Imaging Results Imaging Date Name Status LastModified by Organiz ation Details LastModified Time 12/28/2023 XR, lumbar spine completed [address] [place], [address], 01/02/2024 17:35:02 12/28/2023 CT, lumbar spine, w/o contrast completed [address] [place], [address], 01/02/2024 17:35:02 Procedure Notes None recorded. Medical Equipment None Reported. Allergies No known drug allergies Medications Name Sig Start Date Stop Date Status Note LastModified by Organization Details LastModified Time cyclobenzap rine 10 mg tablet TAKE 1 TABLET BY MOUTH EVERY DAY AT BEDTIME 06/07 completed Not Available Not Available Not Available amoxicillin 500 mg capsule Take 2 capsules twice a day by oral route for 10 days. 09/07 completed Not Available Not Available Not Available atorvastati n 40 mg tablet TAKE 1 TABLET BY MOUTH DAILY IN THE MORNING active Not Available Not Available No t Available terbinafine HCl 1 % topical cream APPLY TO THE AFFECTED AND SURROUNDI NG AREAS OF SKIN BY TOPICAL ROUTE ONCE DAILY 01/03 completed Not Available Not Available Not Available promethazin e-DM 6.25 mg-15 mg/5 mL oral syrup Take 5 mL every 4 hours by oral route as needed for 10 days. 11/04 completed Not Available Not Available Not Available doxycycline hyclate 100 mg capsule TAKE ONE CAPSULE BY MOUTH TWICE DAILY FOR 7 DAYS 02/08 completed Not Available Not Available Not Available azithromyci n 250 mg tablet TAKE 2 TABLETS BY MOUTH ON DAY 1, THEN TAKE 1 TABLET DAILY ON DAYS 2-5 02/08 completed Not Available Not Available Not Available benzonatate 200 mg capsule Take 1 capsule 3 times a day by oral route as needed for 10 days. 01/03 completed Not Available Not Available Not Available prednisone 20 mg tablet TAKE THREE TABLETS DAILY DIRECTED FOR 5 DAYS 02/08 completed Not Available Not Available Not Available clopidogrel 75 mg tablet TAKE 1 TABLET BY MOUTH DAILY active Not Available Not Available No t Available amlodipine 5 mg tablet TAKE 1 TABLET BY MOUTH DAILY IN THE MORNING active Not Available Not Available No t Available ciprofloxac in 500 mg tablet Take 1 tablet every 12 hours by oral route for 10 days. 09/07 completed Not Available Not Available Not Available isosorbide mononitrate ER 60 mg tablet,exte nded release 24 hr TAKE 1 TABLET BY MOUTH DAILY IN THE MORNING active Not Available Not Available No t Available pantoprazol e 40 mg tablet,ian yed release TAKE 1 TABLET BY MOUTH DAILY BEFORE A MEAL active Not Available Not Available No t Available nicotine 21 mg/24 hr daily transdermal patch Apply 1 patch every day by transderm al route for 30 days. 01/03 completed Not Available Not Available Not Available nitroglycer in 0.[address] 1 tablet as needed by sublingua l route as needed for 30 days. 01/03 completed Not Available Not Available Not Available aspirin 81 mg chewable tablet CHEW TWO TABLETS BY MOUTH EVERY MORNING TO PREVENT BLOOD CLOTS 2022 active Not Available Not Available Not Avai lable mupirocin 2 % topical ointment apply to nostrils bid x 2 week active Not Available Not Available No t Available ergocalcife rol (vitamin D2) 1,250 mcg (50,000 unit) capsule TAKE 1 CAPSULE BY MOUTH 1 TIME A WEEK active Not Available Not Available No t Available albuterol sulfate HFA 90 mcg/actuati on aerosol inhaler Inhale 2 puffs by mouth every 4 hours as needed for shortness of breath or wheezing 2022 active Not Available Not Available Not Avai lable fluticasone propionate 50 mcg/actuati on nasal spray,suspe nsion [place] 1 spray twice a day by intranasa l route for 30 days. 01/03 completed Not Available Not Available Not Available doxycycline hyclate 100 mg tablet TAKE 1 TABLET BY MOUTH TWICE DAILY FOR 7 DAYS 02/08 completed Not Available Not Available Not Available loratadine 10 mg tablet TAKE ONE TABLET BY MOUTH EVERY MORNING FOR ALLERGIES 01/03 completed Not Available Not Available Not Available amoxicillin 875 mg-potassiu m clavulanate 125 mg tablet TAKE ONE TABLET EVERY TWELVE HOURS FOR 7 DAYS 02/08 completed Not Available Not Available Not Available valsartan 160 mg tablet TAKE 1 TABLET BY MOUTH DAILY IN THE MORNING active Not Available Not Available No t Available Vitamin D3 25 mcg (1,000 unit) tablet Take 1 tablet every day by oral route with meals. 02/08 completed Not Available Not Available Not Available metoprolol tartrate 25 mg tablet TAKE ONE-HALF TABLET BY MOUTH DAILY IN THE MORNING 2023 active Not Available Not Available Not Avai lable Vitamin D 02/08 completed Not Available Not Available Not Available Iron (ferrous sulfate) 02/08 completed Not Available Not Available Not Available Chantix 0.5 mg tablet on days 1-3 take one daily on days 4-7 take one tab BID and day 8 on take 1mg daily 01/03 completed Not Available Not Available Not Available FeroSul 325 mg (65 mg iron) tablet take 1 tablet by mouth every day 2023 active Not Available Not Available Not Avai lable B12 02/08 completed Not Available Not Available Not Available Xarelto 04/07 completed Not Available Not Available Not Available Brilinta 90 mg tablet TAKE 1 TABLET BY MOUTH TWICE DAILY 06/07 completed Not Available Not Available Not Available Brilinta 01/03 completed Not Available Not Available Not Available Pennsaid 20 mg/gram/act uation (2 %) topical soln in metered-dos e pump APPLY 2 PUMPS (40 MG) TO THE AFFECTED KNEE(S) BY TOPICAL ROUTE 2 TIMES PER DAY 11/04 completed Not Available Not Available Not Available Jardiance 10 mg tablet take 1 tablet by mouth every day active Not Available Not Available No t Available Jardiance 02/08 completed Not Available Not Available Not Available Vitamin B12 active Not Available Not A vailable Not Available Xarelto 2.5 mg tablet TAKE 1 TABLET BY MOUTH TWICE DAILY 02/08 completed Not Available Not Available Not Available Paxlovid 300 mg (150 mg x 2)-100 mg tablets in a dose pack TAKE 2 NIRMATREL VIR TABLETS AND 1 RITONAVIR TABLET TOGETHER BY MOUTH TWICE DAILY FOR 5 DAYS 08/09 completed Not Available Not Available Not Available Vitals Date Recorded Body height Body mass index (BMI) Body weight Heart rate Oxygen saturation Oxygen saturation in Arterial blood by Pulse oximetry Systolic blood pressure Diastolic blood pressure Provider Name and Address Organization Details Last Updated DateTime 3 182.88 cm 35.4 kg/m2 054289. 61 g 78 /min 97 % 97 % 142 mm[Hg] 80 mm[Hg] Rosalva Lima MA [place] - [facility] 3 12:18:42 Date Recorded Body height Body mass index (BMI) Body weight Heart rate Body temperature Oxygen saturation Oxygen saturation in Arterial blood by Pulse oximetry Systolic blood pressure Diastolic blood pressure Provider Name and Address Organization Details Last Updated DateTime 4 182.88 cm 35.5 kg/m2 131513. 4 g 76 /min 98.6 [degF] 92 % 92 % 112 mm[Hg] 84 mm[Hg] Ashley Moore MA [facility] 4 14:11:09 Date Recorded Body height Body mass index (BMI) Body weight Heart rate Oxygen saturation Oxygen saturation in Arterial blood by Pulse oximetry Systolic blood pressure Diastolic blood pressure Provider Name and Address Organization Details Last Updated DateTime 4 182.88 cm 35.5 kg/m2 410988. 4 g 75 /min 91 % 91 % 110 mm[Hg] 60 mm[Hg] Bobby Souza MA [facility] 4 14:56:54 Date Recorded Body height Body mass index (BMI) Body weight Heart rate Oxygen saturation Oxygen saturation in Arterial blood by Pulse oximetry Systolic blood pressure Diastolic blood pressure Provider Name and Address Organization Details Last Updated DateTime 4 182.88 cm 34.2 kg/m2 115441. 92 g 78 /min 96 % 96 % 110 mm[Hg] 62 mm[Hg] Debbi Bryant MA [facility] 4 14:17:25 Date Recorded Body height Body mass index (BMI) Body weight Heart rate Oxygen saturation Oxygen saturation in Arterial blood by Pulse oximetry Systolic blood pressure Diastolic blood pressure Provider Name and Address Organization Details Last Updated DateTime 4 182.88 cm 34.5 kg/m2 153109. 98 g 65 /min 95 % 95 % 112 mm[Hg] 62 mm[Hg] Veronika Gallagher MA [facility] 4 14:09:35 Social History Question Answer Notes LastModified by Organizat ion Details LastModified Time Tobacco Smoking Status Current Every Day Smoker BROOKS De La Cruz, [facility] 08/04/2021 11:51:48 Do You Have An Advance Directive? No Information not available 02/09/2024 What Is Your Level Of Alcohol Consumption? Moderate Information not available 08/04/2021 How Many Years Have You Consumed Alcohol? 40 Information not available 08/04/2021 Are You Blind Or Do You Have Difficulty Seeing? No Information not available 08/04/2021 What Is Your Level Of Caffeine Consumption? Moderate Information not available 08/04/2021 In The 14 Days Before Symptom Onset, Have You Had Close Contact With A Laboratory-confir med COVID-19 While That Case Was Ill? No Information not available 06/07/2024 In The 14 Days Before Symptom Onset, Have You Had Close Contact With A Person Who Is Under Investigation For COVID-19 While That Person Was Ill? No Information not available 06/07/2024 Have You Been To An Area Known To Be High Risk For COVID-19? No Information not available 06/07/2024 Are You Currently Employed? No Retired Information not available 08/04/2021 Are You Deaf Or Do You Have Serious Difficulty Hearing? No Information not available 08/04/2021 What Type Of Diet Are You Following? REGULAR Information not available 08/04/2021 Are There Any Guns Present In Your Home? Yes Information not available 08/04/2021 What Was The Date Of Your Most Recent Tobacco Screening? 08/09/2024 Information not available 08/09/2024 How Many Children Do You Have? 3 Information not available 08/04/2021 Do You Use Protection During Sex? No Information not available 08/04/2021 What Is Your Relationship Status? Information not available 08/04/2021 Do You Use Your Seat Belt Or Car Seat Routinely? Yes Information not available 08/04/2021 Are You Sexually Active? Yes Information not available 08/04/2021 Do You Have Smoke And Carbon Monoxide Detectors In Your Home? Yes Information not available 08/04/2021 At What Age Did You Start Smoking Tobacco? 20 Information not available 08/04/2021 Are You Passively Exposed To Smoke? Yes Information no t available 08/04/2021 How Much Tobacco Do You Smoke? 1 PPD Information not available 08/04/2021 Do You Feel Stressed (tense, Restless, Nervous, Or Anxious, Or Unable To Sleep At Night)? CD8351-5 Information not available 08/04/2021 Do You Use Any Illicit Or Recreational Drugs? Yes Information not available 02/09/2024 Do You Use Sunscreen Routinely? No Information not available 08/04/2021 Has Tobacco Cessation Counseling Been Provided? Yes [email or web address] Information not available 01/20/2022 On What Date Was Tobacco Cessation Counseling Provided? 08/09/2024 Information not available 08/09/2024 How Many Years Have You Smoked Tobacco? 40 Information not available 08/04/2021 Do You Or Have You Ever Used Any Other Forms Of Tobacco Or Nicotine? No Information not available 08/04/2021 Sex: Male Functional Status Question Answer Note LastModified by Organizat ion Details LastModified Time Are you able to care for yourself? Yes Information not available 08/04/2021 What is your exercise level? Occasional Information not available 08/04/2021 Mental Status None recorded. Family History Relationship Description Onset Age of this Age Resolved Age Notes LastModified by Organization Details LastModified Time Father Heart disease [email or web address] Not available 2023 14:04:53 Medical History Condition Response High Blood Pressure Y High Cholesterol Y Heart Attack ([place]) Y Hepatitis N Heart Failure N Immunizations Vaccine Type Date Status Note Provider Nam e and Address Organization Details Recorded Time COVID-19, mRNA, LNP-S, PF, 100 mcg/0.5mL dose or 50 mcg/0.25mL dose 1 completed Not Available [facility] 04/20/2023 05:34:27 COVID-19, mRNA, LNP-S, PF, 100 mcg/0.5mL dose or 50 mcg/0.25mL dose 1 completed Not Available [facility] 04/20/2023 05:34:27 COVID-19, mRNA, LNP-S, PF, 100 mcg/0.5mL dose or 50 mcg/0.25mL dose 1 completed Not Available [facility] 04/20/2023 05:34:27 influenza, unspecified formulation 2 completed Not Available [facility] 04/20/2023 05:34:28 Influenza, split virus, trivalent, preservative 4 completed Juanita Ray MD Attn: Accounting[address] [facility] [facility], [place], [address], [facility] 08/20/2024 15:54:02 Past Encounters Encounter ID Performer Location Encounter Start Date Encounter Closed Date Diagnosis/Indication Diagnosis SNOMED-CT Code Diagnosis ICD10 Code Diagnosis Note [id number] ENRIQUE Rowan (Adult Med) [address] [place] [address] 26011-230 0 08/04/2021 11:19:05 08/04/2021 12:23:28 Stented coronary artery 855222379 Z95.5 Hyperlipidemia 34012911 E78.5 Coronary atherosclerosis 738013616 I25.84 Acute bronchitis 4746055 2 J20.9 Essential hypertension 19803193 I10 Gastroesop hageal reflux disease 858835943 K21.00 [id number] ENRIQUE Rowan (Adult Med) [address] [place] [address] 50288-624 0 09/15/2021 10:04:59 09/15/2021 11:42:58 Stented coronary artery 708447146 Z95.5 Hyperlipidemia 74326853 E78.5 Gastroesop hageal reflux disease 752334868 K21.00 Essential hypertension 10485699 I10 Coronary atherosclerosis 864463863 I25.84 Osteoarthritis 684514198 M19.90 Tinea pedis 7017608 B35. 3 Screening for malignant neoplasm of prostate 620496528 Z12.5 At [facility] risk of nutritional deficit 345688584 Z91.89 [id number] ENRIQUE Rowan (Adult Med) [address] [place] [address] 30815-471 0 11/04/2021 11:51:15 11/06/2021 11:07:37 Vitamin D below reference range 357088178 E55.9 Gastroesop hageal reflux disease 575232860 K21.00 Hyperlipidemia 58794609 E78.5 Osteoarthritis 124877587 M19.90 Coronary atherosclerosis 396861380 I25.84 [id number] ENRIQUE Rowan (Adult Med) [address] [place] [address] 91411-436 0 01/20/2022 11:49:55 01/21/2022 14:22:02 Tobacco user 453740156 Z72.0 Stented co ronary artery 815353447 Z95.5 Coronary atherosclerosis 246552133 I25.84 Vitamin D below reference range 878995641 E55.9 Essential hypertension 68862182 I10 Gastroesop hageal reflux disease 591683992 K21.00 Hyperlipidemia 96405391 E78.5 Osteoarthritis 328916545 M19.90 [id number] ENRIQUE Rowan (Adult Med) [address] [place] [address] 52917-198 0 03/24/2022 12:19:48 03/25/2022 11:46:53 Screening for malignant neoplasm of colon 007626175 Z12.11 HIV screening 879926750 Z11.4 [id number] ENRIQUE Rowan (Adult Med) [address] [place] [address] 07215-455 0 05/28/2022 12:09:32 06/02/2022 09:26:17 Chronic folliculitis 228709605 L73.9 Acute righ t otitis media 360719517 H66.91 Allergic rhinitis 564272 04 J30.9 Coronary atherosclerosis 458906052 I25.84 Vitamin D below reference range 492955250 E55.9 Essential hypertension 35156719 I10 Gastroesop hageal reflux disease 924850016 K21.00 Hyperlipidemia 55719899 E78.5 Osteoarthritis 130252892 M19.90 Stented co ronary artery 197010079 Z95.5 Tobacco user 807359743 Z 72.0 [id number] MD Citlali Kim (Adult Med) [address] [place] [address] 88326-175 0 09/07/2022 15:54:38 09/09/2022 12:44:37 Morbid obesity 100240898 E66.01 BMI is 35.4 he ahs been adised to watch his diet, exercise and keep the weight down. Respirator y tract infection 604870882 J98.8 Discussed with patient, he greed to try med as ordered. Stented co ronary artery 230155401 Z95.[address] referral. Vitamin D below reference range 853354324 E55.9 Wants to refill med. Essential hypertension 09962466 I10 As 12 . His BP is 124/70. Hyperlipidemia 81219813 E78.5 Low animal fat diet. Osteoarthritis 188962889 M19.90 Stable. Coronary atherosclerosis 351836497 I25.10 Had one stent in it, has not seen his cardiologi st for years. agreed to refer to [facility]. Allergic rhinitis 041397 04 J30.9 stable. Gastroesop hageal reflux disease 558878869 K21.9 Wanyts to refill med. Screening for malignant neoplasm of colon 014264557 Z12.11 He agreed for the cologuard screening. [id number] Trevor Schroeder MD [facility] (Adult Med) [address] [place] [address] [phone] 0 01/08/2023 12:18:31 01/08/2023 12:45:03 Chronic obstructive pulmonary disease 08891879 J44.9 Has enough med refills. Smoker 63218530 F17.200 Advised him to quit cigarette' s smoking, he will have LDCT ordered by his cardiologi st. Obesity 447145975 E66.9 Advise him to watch his low salt diet, exercise and keep the weight down, BMI is 35.5 as 01-08-23. [id number] Trevor Schroeder MD [facility] (Adult Med) [address] [place] [address] 36879-726 0 04/07/2023 11:53:26 04/08/2023 14:30:40 Chronic obstructive pulmonary disease 45750928 J44.9 Has enough med refills. under he care of his lung specialist . Stented co ronary artery 373881806 Z95.[address] referral. Under the care of his cardiologi st Hypertensive disorder 38 372111 I10 BP is 115/79 today 04-07-23. Under the care of his cardiologi st. [id number] Trevor Schroeder MD [facility] (Adult Med) [address] [place] [address] 76648-432 0 08/02/2023 12:06:13 08/03/2023 12:48:01 Essential hypertension 94213474 I10 As 12=12-2021 . His BP is 124/70. BP is 142/80, will refill med and monitor BP. Coronary atherosclerosis 637334417 I25.10 Had one stent in it, has not seen his cardiologi st for years. agreed to refer to [facility]. Hyperlipidemia 94658547 E78.5 Low animal fat diet. Gastroesop hageal reflux disease 779241940 K21.9 Wants to refill med. Obesity 061927900 E66.9 Advise him to watch his low salt diet, exercise and keep the weight down, BMI is 35.5 as 01-08-23. BMI is 35.4 as 08-02-23. [id number] MD Citlali Hall (Adult Med) [address] [place] [address] 90592-463 0 01/04/2024 13:51:30 01/04/2024 14:58:03 Coronary atherosclerosis 067601745 I25.10 Essential hypertension 54474698 I10 Hyperlipidemia 16732780 E78.5 Gastroesop hageal reflux disease without esophagitis 236599385 K21.9 Tobacco user 892940708 Z 72.0 Obstructiv e sleep apnea syndrome 71424902 G47.33 Low back pain 777813675 M54.50 [id number] MD Citlali Hall (Adult Med) [address] [place] [address] 57577-286 0 02/09/2024 14:25:52 02/09/2024 15:46:04 Colorectal cancer detected by DNA-based stool screening 196517423 R19.5 Nicotine dependence 5629 4008 Z87.891 Mechanical low back pain 074115768 M54.50 [id number] MD Citlali Hall (Adult Med) [address] [place] [address] 15928-623 0 06/07/2024 13:58:03 06/07/2024 15:13:15 Obesity 061550914 E66.8 Suspected COVID-19 16194 4004 Z20.822 Coronary atherosclerosis 450765517 I25.10 Essential hypertension 90402822 I10 Gastroesop hageal reflux disease without esophagitis 160342203 K21.9 Hyperlipidemia 96266339 E78.5 [id number] Juanita Ray MD [facility] (Adult Med) [address] [place] [address] 08/09/2024 13:49:00 08/09/2024 14:43:33 Smoker 09438440 F17.200 Obesity 377275981 E66.9 Administra tion of influenza vaccine 87988023 Z23 Essential hypertension 59044633 I10 Coronary atherosclerosis 144828558 I25.10 Gastroesop hageal reflux disease without esophagitis 912028843 K21.9 Hyperlipidemia 68885062 E78.5 Health Concerns Section Related Observation LastModified by Organization Detai ls LastModified Time None Recorded Concern Status LastModified by Organization Details LastModified Time None Recorded Advance Directives Directive N: Payers Encounter Date Sequence Insurance Name Policy Number Policy [place] Covered Member ID [place] Member ID Guarantor Name 08/02/2023 1 [facility] (MEDICARE REPLACEMENT/A DVANTAGE - HMO) [id number] Idnerjit Noonan [id number] Inderjit Noonan 01/04/2024 1 [facility] (MEDICARE REPLACEMENT/A DVANTAGE - HMO) [id number] Inderjit Noonan [id number] Inderjit Noonan 02/09/2024 1 [facility] (MEDICARE REPLACEMENT/A DVANTAGE - HMO) [id number] Inderjit Noonan [id number] Inderjit Noonan 06/07/2024 1 [facility] (MEDICARE REPLACEMENT/A DVANTAGE - HMO) [id number] Inderjit Noonan [id number] Inderjit Noonan 08/09/2024 1 [facility] (MEDICARE REPLACEMENT/A DVANTAGE - HMO) [id number] Inderjit Noonan [id number] Inderjit Noonan Notes Date Note Type Note Provider Name and Address Organization Details Recorded Time 08/02/2023 text/html Office visit. NK DA. history of hypertension, dyslipidemia, atherosclerosis, acid reflux and a smoker. check up and med refill. No chest pain, no difficulty of breathing. no leg edema. ROS as noted in HPI. Came with . Trevor Schroeder MD Attn: Accounting[address] [place], [address], [place] [facility] 08/02/2023 13:18:53 01/04/2024 text/html CAD no chest sherif n hypertension no dizziness no palpitations no headache. Hyperlipidemia could do better with diet GERD no nausea no vomiting tobacco pack a day sleep apnea does not want to wear CPAP cannot tolerate it low back pain he was helping his son move some heavy equipment about 3 months ago needs to set him pain in the small of his back since then he got a CAT scan done by his underwear cutter that did not show anything acute there was some multilevel disc disease. No radicular symptoms no bowel or bladder and cannot Juanita Ray MD Attn: Accounting, [address] [facility], [place], [address], [facility] 01/04/2024 22:30:09 02/09/2024 text/html Short-term follo w-up back better did not do therapy he denies any chest pain is recently seen underwear cutter and they made no adjustments in his medication he is due for his LDCT he continues to smoke a pack a day Juanita Ray MD Attn: Accounting, [address] [place], [address], [facility] 02/09/2024 21:44:33 06/07/2024 text/html cough congestion runny nose no short of breath no fever no chills no hemoptysis. CAD no chest pain or shortness breath. Hypertension no headache no dizziness. GERD no nausea no vomiting. Hyperlipidemia says he is watching his diet and taking his medication Juanita Ray MD Attn: Accounting, [address] [place], [address], [facility] 06/11/2024 16:57:27 08/09/2024 text/html hypertension no headache no dizziness. Obesity trouble losing weight. CAD no chest or shortness breath. GERD no nausea no heartburn. Lipidemia could do better with diet exercise and reduction red me. Positive Cologuard he needs to get the colonoscopy done he understands positive Cologuard could represent cancer that could lead to Juanita Ray MD Attn: Accounting, [address] [facility], [place], [address], [place] [facility] 08/20/2024 15:59:05
--- OUTSIDE RECORDS SUMMARY | 2024-11-06 00:43 | XMS_ITS | Referral Summary ---
Author Organization [facility] [address] Address [address] [place] [address] Care Team Providers Care Manager Diversity Name Role Phone Marcos Pisano MD Primary Care Provider Allergies No known active allergies Medications nitroglycerin (NITROSTAT) 0.[address] 1 tablet (0.4 mg total) under the tongue every 5 (five) minutes as needed for chest pain. 25 tablet 2 8 Active Additional Information Patient not taking.Reported on 12/23/2020 aspirin 81 mg enteric coated tablet Take 1 tablet (81 mg total) by mouth daily 0 0 Active Additional Information Patient taking differently:81 mg oral Daily,Take 2 tablets daily., Reported on 12/23/2020 metoprolol tartrate (LOPRESSOR) 25 mg immediate release tablet TAKE ONE-HALF TABLET BY MOUTH TWICE A DAY 90 tablet 2 0 Active Additional Information Patient taking differently: 12.5 mg Daily, Reported on 12/23/2020 varenicline (CHANTIX) 1 mg tabletIndication s:Smoking Cessation Take 1 tablet (1 mg total) by mouth 2 (two) times a day Take with full glass of water. 60 tablet 3 1 Active furosemide (LASIX) 20 mg tabletIndication s:Chest congestion Take 1 tablet (20 mg total) by mouth daily 30 tablet 1 1 Active isosorbide mononitrate ER (IMDUR) 60 mg 24 hr tablet TAKE 1 TABLET BY MOUTH IN THE MORNING 90 tablet 3 1 Active atorvastatin (LIPITOR) 40 mg tablet Take 1 tablet (40 mg total) by mouth daily 30 tablet [address] (PROTONIX) 40 mg EC tablet TAKE 1 TABLET BY MOUTH DAILY 90 tablet 1 1 Active amLODIPine (NORVASC) 5 mg tablet TAKE 1 TABLET BY MOUTH DAILY 90 tablet 1 1 Active valsartan (DIOVAN) 160 mg tablet TAKE 1 TABLET BY MOUTH DAILY 90 tablet 2 Active Active Problems Problem Noted Date Diagnosed Date 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 10/14/2018 Bronchitis 04/08/2018 Coronary arteriosclerosis in [place] artery 11/17 Overview (12/31/2016): Coronary artery disease involving [place] coronary artery of [place] heart with angina pectoris with documented spasm Tobacco dependence syndrome 12/06/2014 Overview (12/31/2016): Tobacco abuse Chronic coronary artery disease 12/06/2014 Overview (12/31/2016): CAD (coronary artery disease) History of myocardial infarction 12/06/2014 Overview (12/31/2016): History of ST elevation myocardial infarction (STEMI) Hypertension 12/06/2014 Overview (12/31/2016): Hypertension Aortic ejection murmur 12/06/2014 Overview (12/31/2016): Aortic ejection murmur Hyperlipidemia LDL goal <70 12/06/2014 Overview (12/31/2016): Hyperlipidemia Social History Tobacco Use Types Packs/Day Years Used Date Smoking Tobacco: Every Day Cigarettes Smokeless Tobacco: Never Tobacco Cessation:Counseling Given: Yes Comments:Smoking History Packs/day: 1 Packs Alcohol Use Standard Drinks/Week Comments Yes 18 (1 standard drink = 0.6 oz pu re alcohol) Personal Safety Answer Date Recorded Getting School Help Needed Not on file 11/19 Sex and Gender Information Value Date Recorded Sex Assigned at Not on file 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 Gender Identity Male 12/23/2020 8:07 AM CDT Sexual Orientation Straight 12/23/2020 8: 07 AM CDT Last Filed Vital Signs Vital Sign Reading Time Taken Comments Blood Pressure 114/64 12/23/2020 8:53 AM CDT Pulse 57 12/23/2020 8:53 AM CDT Temperature 36.8 C (98.2 F) 08/19/2020 9:03 AM OPERATIONS BUSINESS PARTNER Respiratory Rate - - Oxygen Saturation 96% 12/23/2020 8:53 AM CDT Inhaled Oxygen Concentration - - Weight 114.3 kg (252 lb) 12/23/2020 8:53 AM CDT Height 182.9 cm (6') 12/23/2020 8:53 AM CDT Body Mass Index 34.18 12/23/2020 8:53 AM CDT Plan of Treatment Not on file [facility] Care Teams Manager Diversity Relationship Specialty Start Date End Date Marcos Pisano MD PCP - General 12/25/16
--- OUTSIDE RECORDS SUMMARY | 2024-11-06 00:43 | XMS_ITS | Clinical Summary ---
Author Organization [facility] [address] Address [address] [place] [address] Care Team Providers Care Supervisor Tank House Name Role Phone Marcos Pisano MD Primary [...] licence 10/14/2018 Bronchitis 04/08/2018 Coronary arteriosclerosis in [place] artery 11/17 Overview (12/31/2016): Coronary artery disease involving [place] coronary artery of [place] heart with angina pectoris with documented spasm Tobacco dependence syndrome 12/06/2014 Overview (12/31/2016): Tobacco abuse Chronic coronary artery disease 12/06/2014 Overview (12/31/2016): CAD (coronary artery disease) History of myocardial infarction 12/06/2014 Overview (12/31/2016): History of ST elevation myocardial infarction (STEMI) Hypertension 12/06/2014 Overview (12/31/2016): Hypertension Aortic ejection murmur 12/06/2014 Overview (12/31/2016): Aortic ejection murmur Hyperlipidemia LDL goal <70 12/06/2014 Overview (12/31/2016): Hyperlipidemia Surgical History Surgery Date Site/Laterality Comments CATARACT EXTRACTION, BILATERAL COLONOSCOPY W/ BIOPSIES AND POLYPECTOMY Medical History Medical History Date Comments Hx Other Medical CAD, anterior S T elevation myocardial infarction s; Comments: MAF 12/06/2014 - Family History Medical History Relation Name Comments Hypertension Father Hypertension; Hypertension Mother Hypertension; Relation Name Status Comments Father Mother Alive Social History Tobacco Use Types Packs/Day Years [...] on file 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 Gender Identity Male 12/23/2020 8:07 AM CDT Sexual Orientation Straight 12/23/2020 8: 07 AM CDT Obstetrics History Last Filed Vital Signs Vital Sign Reading Time Taken Comments Blood Pressure 114/64 12/23/2020 8:53 AM CDT Pulse 57 12/23/2020 8:53 AM CDT Temperature 36.8 C (98.2 F) 08/19/2020 9:03 AM 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
--- NOTE | 2024-11-06 09:44 | P.HP_ITS ---
History of Present Illness History of Present Illness Consent: Risks, benefits, and alternatives have been discussed and questions answered. Patient agrees to proceed with procedure. Chief complaint: Other fecal abnormalities Narrative: Inderjit Noonan is a 64 year old male with last colonoscopy about 10 years ago, had + cologuard Review of Systems Review of Systems: All systems reviewed & are unremarkable except as noted in HPI and below PMFSH Past Medical History Medical History (Updated 11/06/24 @ 09:45 by Gualberto Patel MD) Positive colorectal cancer screening using Cologuard test Abscess Acute bronchitis due to other specified organisms Bilateral impacted cerumen Body mass index [BMI] 34.0-34.9, adult (07/26/17) Coronary artery disease involving [place] artery of transplanted heart Cough Dietary counseling and surveillance (08/05/18) Elevated glucose Encounter for screening for lipoid disorders Encounter for screening for malignant neoplasm of colon Encounter for screening for malignant neoplasm of prostate Encounter for smoking cessation counseling Hemoptysis Hyperlipidemia, unspecified Infected sebaceous cyst Local infection of the skin and subcutaneous tissue, unspecified BMI 33.0-33.9,adult Family History Family History Father Hypertension Cerebrovascular accident Malignant neoplasm of prostate Family history of diabetes mellitus in first degree relative Family history of coronary artery disease Family history of atrial fibrillation Mother Family history of coronary artery disease Hypertension Social History Social History Years smoked: 40 Tobacco type: cigarettes Second hand tobacco smoke exposure: No Alcohol intake: current Drinks per week: 12 Alcohol use details: Beer Substance use: never Substance use type: does not use Living arrangements: alone 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/Education: 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 Gender identity (if verbalized by the patient): Male Spiritual care concerns: No Meds Home Medications and Allergies Home Medications ?Medication ?Instructions ?Recorded ?Confirmed ?Type albuterol sulfate 90 mcg/actuation 1 puff inhalation Q4H PRN 08/31/19 11/01/24 Rx aerosol inhaler (ProAir HFA) shortness of breath or wheezing #6.7 grams amlodipine 5 mg tablet 5 mg PO DAILY 08/31/19 11/06/24 History aspirin 81 mg tablet,delayed 81 mg PO DAILY 08/31/19 11/06/24 History release atorvastatin 40 mg tablet 40 mg PO DAILY 08/31/19 11/06/24 History isosorbide mononitrate 60 mg 60 mg PO DAILY 08/31/19 11/06/24 History tablet,extended release 24 hr metoprolol tartrate 25 mg tablet 12.5 mg PO DAILY 08/31/19 11/06/24 History pantoprazole 40 mg tablet,delayed 40 mg PO QAM 08/31/19 11/06/24 History release valsartan 160 mg tablet 160 mg PO DAILY 08/31/19 11/06/24 History tizanidine 2 mg tablet 2 mg PO TID PRN muscle spasticity 03/20/21 11/01/24 Rx #30 tabs celecoxib 100 mg capsule (Celebrex) 100 mg PO BID #60 caps 04/23/21 11/01/24 Rx clopidogrel 75 mg tablet 75 mg PO DAILY 11/01/24 11/06/24 History cyanocobalamin (vitamin B-12) 1,000 mcg PO DAILY 11/01/24 11/06/24 History 1,000 mcg tablet (Vitamin B-12) empagliflozin 10 mg tablet 10 mg PO DAILY 11/01/24 11/06/24 History (Jardiance) ergocalciferol (vitamin D2) 1,250 50,000 unit PO WEEKLY 11/01/24 11/06/24 History mcg (50,000 unit) capsule (Vitamin D2) ferrous sulfate 325 mg (65 mg 325 mg PO DAILY 11/01/24 11/06/24 History iron) tablet (FeroSul) Allergies Allergy/AdvReac Type Severity Reaction Status Date / Time No Known Allergies Allergy Verified 11/06/24 09:41 Exam Const: General: comfortable and no acute distress HENMT: Face/Nose/Sinus: Normal nares present Eyes: General: appearance normal, both eyes and all related structures Neck: Neck: no JVD Resp: Auscultation: clear to auscultation bilaterally Cardio: Rate: regular rate Rhythm: regular rhythm GI: Inspection: non-distended GI Palp: Yes Soft to palpation Skin: General skin exam: normal color Neuro: General: gait normal Speech: normal speech Extrem: General: normal to inspection Psych: Mental Status: mental status grossly normal Assessment and Plan Assessment and plan (1) Positive colorectal cancer screening using Cologuard test: Code(s): R19.5 - Other fecal abnormalities Status: Acute Assessment and Plan: colonoscopy
[2024-11-06 09:46] VITALS: BP 123/71; PULSE 53; RESP 18; TEMP 36; O2SAT 97
[2024-11-06] MEDS: LACTATED RINGERS 1,000 ML 150 ML IV CONT (09:57)
[2024-11-06 09:58] LABS: Glucose Point of Care 105 mg/dl (65-105)
--- NOTE | 2024-11-06 10:34 | WPDANESEPPF ---
Anes - Initial Pre Proc Eval Procedure: Operation Date: 11/06/24 11:30 Proposed Procedures p Colonoscopy - Gualberto Patel MD Date/Time: 11/06/24 10:34 Surgeon: Gualberto Patel MD Pre Op Diagnosis: Other fecal abnormalities Patient Data Age: 64 Gender: M Height: 1.83 m Weight: 115.7 kg Last Vital Signs Temp 96.8 F L 11/06/24 09:46 Pulse 53 L 11/06/24 09:46 Resp 18 11/06/24 09:46 BP 123/71 11/06/24 09:46 Pulse Ox 97 11/06/24 09:46 O2 Del Method Room Air 11/06/24 09:46 Allergies Allergy/AdvReac Type Severity Reaction Status Date / Time No Known Allergies Allergy Verified 11/06/24 09:41 Home Medications ?Medication ?Instructions ?Recorded ?Confirmed ?Type albuterol sulfate 90 mcg/actuation 1 puff inhalation Q4H PRN 08/31/19 11/01/24 Rx aerosol inhaler (ProAir HFA) shortness of breath or wheezing #6.7 grams amlodipine 5 mg tablet 5 mg PO DAILY 08/31/19 11/06/24 History aspirin 81 mg tablet,delayed 81 mg PO DAILY 08/31/19 11/06/24 History release atorvastatin 40 mg tablet 40 mg PO DAILY 08/31/19 11/06/24 History isosorbide mononitrate 60 mg 60 mg PO DAILY 08/31/19 11/06/24 History tablet,extended release 24 hr metoprolol tartrate 25 mg tablet 12.5 mg PO DAILY 08/31/19 11/06/24 History pantoprazole 40 mg tablet,delayed 40 mg PO QAM 08/31/19 11/06/24 History release valsartan 160 mg tablet 160 mg PO DAILY 08/31/19 11/06/24 History tizanidine 2 mg tablet 2 mg PO TID PRN muscle spasticity 03/20/21 11/01/24 Rx #30 tabs celecoxib 100 mg capsule (Celebrex) 100 mg PO BID #60 caps 04/23/21 11/01/24 Rx clopidogrel 75 mg tablet 75 mg PO DAILY 11/01/24 11/06/24 History cyanocobalamin (vitamin B-12) 1,000 mcg PO DAILY 11/01/24 11/06/24 History 1,000 mcg tablet (Vitamin B-12) empagliflozin 10 mg tablet 10 mg PO DAILY 11/01/24 11/06/24 History (Jardiance) ergocalciferol (vitamin D2) 1,250 50,000 unit PO WEEKLY 11/01/24 11/06/24 History mcg (50,000 unit) capsule (Vitamin D2) ferrous sulfate 325 mg (65 mg 325 mg PO DAILY 11/01/24 11/06/24 History iron) tablet (FeroSul) Laboratory Tests 11/06/24 09:55 POC Capillary Glucose 105 mg/dl (65-105) Patient hx anesthesia problems: none Family hx anesthesia problems: none Results Review: All pre-operative results and documents have been reviewed as part of the pre-operative evaluation. [facility] Past Medical History Medical History Positive colorectal cancer screening using Cologuard test Abscess Acute bronchitis due to other specified organisms Bilateral impacted cerumen Body mass index [BMI] 34.0-34.9, adult (07/26/17) Coronary artery disease involving [place] artery of transplanted heart Cough Dietary counseling and surveillance (08/05/18) Elevated glucose Encounter for screening for lipoid disorders Encounter for screening for malignant neoplasm of colon Encounter for screening for malignant neoplasm of prostate Encounter for smoking cessation counseling Hemoptysis Hyperlipidemia, unspecified Infected sebaceous cyst Local infection of the skin and subcutaneous tissue, unspecified BMI 33.0-33.9,adult Family History Family History Father Hypertension Cerebrovascular accident Malignant neoplasm of prostate Family history of diabetes mellitus in first degree relative Family history of coronary artery disease Family history of atrial fibrillation Mother Family history of coronary artery disease Hypertension Social History Social History Years smoked: 40 Tobacco type: cigarettes Second hand tobacco smoke exposure: No Alcohol intake: current Drinks per week: 12 Alcohol use details: Beer Substance use: never Substance use type: does not use Living arrangements: alone Occupation/Education: retired 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 CAD s/p PTCA x 2 w LVEF 45 % range. ROLY noncompliant w CPAP, borderline DM. Pt has fair exercise tolerance without cp or sob. Informed Consent: The patient's anesthetic plan and its attendant risks and benefits were discussed with the patient/family/POA. Questions were solicited and answers provided to the satisfaction of the patient/family/POA.
[2024-11-06 11:26] VITALS: BP 103/63; PULSE 62; RESP 20; O2SAT 97
[2024-11-06 11:36] VITALS: BP 113/66; PULSE 57; RESP 21; O2SAT 98
[2024-11-06 11:46] VITALS: BP 128/71; PULSE 54; RESP 14; O2SAT 99
== END 2024-11-06 11:52 | disposition home or self-care (01) ==
PROVIDERS: PCP Internal Medicine; Visit Provider Internal Medicine Gastroenterology
PROC: 0DJD8ZZ Inspection of Lower Intestinal Tract, Via Natural or Artificial Opening Endoscopic (ICD-10-PCS; CPT 45378; principal; 2024-11-06 11:30)
DX: D12.4 Benign neoplasm of descending colon (principal); K64.8 Other hemorrhoids; E78.5 Hyperlipidemia, unspecified; I25.811 Atherosclerosis of native coronary artery of transplanted heart without angina pectoris; F17.210 Nicotine dependence, cigarettes, uncomplicated; E66.9 Obesity, unspecified; Z68.34 Body mass index [BMI] 34.0-34.9, adult; Z79.51 Long term (current) use of inhaled steroids; Z79.82 Long term (current) use of aspirin; Z79.1 Long term (current) use of non-steroidal anti-inflammatories (NSAID); Z79.02 Long term (current) use of antithrombotics/antiplatelets; Z79.84 Long term (current) use of oral hypoglycemic drugs; Z80.42 Family history of malignant neoplasm of prostate; Z82.49 Family history of ischemic heart disease and other diseases of the circulatory system
CPT/HCPCS: 45385; 82948; 88305; J2003; J2704; J7120